=== PATIENT | female | born 1965 | race Caucasian/White ===

== ENCOUNTER 2020-09-13 17:27 | Emergency (ER) | payer OTHER, SELFPAY ==
[2020-09-13 17:38] VITALS: BP 166/107; PULSE 108; RESP 20; TEMP 37; O2SAT 98
--- NOTE | 2020-09-13 18:06 | ED.EYEPROB ---
HPI - Eye Problem General Chief complaint: Eye Problems Stated complaint: RIGHT EYE REDNESS Time Seen by Provider: 09/13/20 18:06 Source: patient Mode of arrival: ambulatory Limitations: no limitations History of Present Illness HPI Narrative: Moriah Silva is a 55 yo female who comes to [facility] for cat scratch in her right eye this morning. She currently states she is having pain in the eye and will do an eye exam to look for corneal abrasion Related Data Allergies Allergy/AdvReac Type Severity Reaction Status Date / Time clonazepam Allergy Unknown Hives Verified 06/25/20 10:05 clonidine Allergy Unknown Hives Verified 06/25/20 10:05 ibuprofen Allergy Unknown Unknown Verified 06/25/20 10:05 NSAIDS (Non-Steroidal Allergy Unknown Anaphylactic Verified 06/25/20 10:05 Anti-Inflamma Shock tramadol Allergy Unknown Hives Verified 06/25/20 10:05 TRAMADOL HCL Allergy Unknown ITCHING Uncoded 06/25/20 10:05 AND HIVES Review of Systems Review of Systems: CONSTITUTIONAL: Denies fever, chills, sweats. EYES: Denies visual changes, redness, discharge. Cat scratched R eye ENT: Denies rhinorrhea, congestion, sore throat, otalgia. CARDIOVASCULAR: Denies chest pain, palpitations, edema. RESPIRATORY: Denies dyspnea, wheezing, cough GASTROINTESTINAL: Denies abdominal pain, nausea, vomiting, diarrhea. GENITOURINARY: Denies dysuria, hematuria, abnormal discharge SKIN: Denies rash or itching. NEUROLOGIC: Denies numbness, or focal weakness. PSYCHIATRIC: Denies anxiety or depression. [facility] Past Medical History Medical History Chronic low back pain Dyslipidemia Environmental allergies Insomnia 11/08/2016 Intractable migraine without status migrainosus Right hip pain Surgical History Surgical History History of appendectomy 2004 History of repair of right rotator cuff 06/2017 and 09/2017 Hx of section (~1992) 1992 Family History Family History Father Family history of elevated blood lipids Mother Family history of coronary artery disease Family history of lupus erythematosus Other Diabetes mellitus Family history of arthritis Family history of heart disease in male family member before age 55 Family history of hypercholesterolemia Family history of malignant neoplasm Family history of malignant neoplasm of breast Family history of malignant neoplasm of esophagus Hypertension Social History Social History Smoking packs per day: 0.5 Smoking cigarettes per day: 10.0 Years smoked: 25 Smoking pack-years: 12.50 Smoking status: Former smoker Second hand tobacco smoke exposure: No Smoking end date: 02/14/15 Alcohol intake: never Substance use: never Substance use type: does not use Gender identity (if verbalized by the patient): Female Comments At time of signature, I agree with nursing past medical, surgical, social and family history. There is no relevant family history pertinent to the presenting complaint. Patient's blood pressure is elevated because of the pain and the blurriness from her eye; she states she has a regular doctors visits and normally does not have high blood pressure Exam Narrative: GENERAL: This is a well-nourished, well-developed patient, in mild distress. HEAD: normocephalic, atraumatic. EYES: PERRL. Sclera clear/white. Vision is grossly intact.R eye some blurriness EARS: External ears normal,. Hearing grossly intact. NOSE: External nose normal without nasal discharge, nares without redness, no rhinorrhea. THROAT: Mucous membranes moist, NECK: Neck supple, non-tender CARDIOVASCULAR: Regular rate and rhythm without murmurs, gallops, or rubs. RESPIRATORY: Coarse to auscultation. Breath sounds equal bilaterally. No wheezes, rales,
== END 2020-09-13 18:31 | disposition home or self-care (01) ==
PROVIDERS: Emergency Provider Nurse Practitioner; PCP Family Medicine
DX: S05.01XA Injury of conjunctiva and corneal abrasion without foreign body, right eye, initial encounter (principal); W55.03XA Scratched by cat, initial encounter; E78.5 Hyperlipidemia, unspecified; Z87.891 Personal history of nicotine dependence
CPT/HCPCS: 99213; A9270; G0463

== ENCOUNTER 2022-12-05 13:15 | Inpatient (IN) | payer OTHER, SELFPAY ==
[2022-12-05] VITALS (36 sets, daily range): BP systolic 125–208; BP diastolic 47–145; PULSE 49–172; RESP 12–31; TEMP 36–36.8; O2SAT 92–99; BMI 27.8
--- NOTE | ~2022-12-05 | XR_ITS ---
XR chest 2V 12/05/2022 13:44 Indication: Shortness of breath. Elevated heart rate. Procedure: 2 view chest Comparison: No prior studies for comparison. Findings: Cardiomegaly. Mild interstitial edema. No acute osseous abnormality. No significant effusio n. No pneumothorax. There are surgical changes of the right humeral head. Impression: 1: Cardiomegaly with mild interstitial edema.. Reviewed, dictated and finalized at location A. Impression: 1: Cardiomegaly with mild interstitial edema..
--- NOTE | 2022-12-05 13:22 | ECG_ITS ---
Measurements Intervals [place] Rate: 154 P: IA: 0 QRS: 23 QRSD: 72 T: 42 QT: 258 QTc: 414 Interpretive Statements ATRIAL FIBRILLATION WITH RAPID VENTRICULAR RESPONSE WITH ABERRANT CONDUCTION OR VENTRICULAR PREMATURE COMPLEXES POOR R-WAVE PROGRESSION NONSPECIFIC ST SEGMENT CHANGES ABNORMAL ECG NO PREVIOUS ECG AVAILABLE FOR COMPARISON Electronically Signed On 12-06-2022 7:02:10 CDT by Jacinto Guerrier M.D.
[2022-12-05 13:36] LABS: Basophils Absolute Auto 0.1 K/mm3 (0.0-0.1); Basophils Percent Auto 0.8 % (0.2-1.2); Eosinophils Absolute Auto 0.3 K/mm3 (0-0.3); Hematocrit 47.8 % (37.0-47.0); Hemoglobin 15.2 g/dL (12.0-15.0); Immature Granulocyte Absolute 0.03 K/mm3 (0.00-0.031); Immature Granulocyte Percent A 0.2 % (0-0.5); Lymphocytes Absolute Auto 4.07 K/mm3 (0.9-3.2); Lymphocytes Percent Auto 32.4 % (18.3-44.2); Mean Corpuscular HGB Conc 31.8 g/dl (32-36); Mean Platelet Volume 11.2 fl (7.4-10.4); Monocytes Absolute Auto 1.2 K/mm3 (0.1-0.6); Monocytes Percent Auto 9.6 % (2.6-8.5); Neutrophils Absolute Auto 6.9 K/mm3 (1.3-6.7); Platelet Count Result 343 k/mm3 (150-375); Red Blood Count 5.25 M/mm3 (4.2-5.4); Red Cell Distribution Width 14.6 % (11.5-14.5); White Blood Count 12.6 K/mm3 (4.5-10.0)
[2022-12-05] MEDS: dilTIAZem HCl INJ 25 MG/5 ML VIAL 15 MG IV PUSH (13:36)
[2022-12-05 13:51] LABS: Alanine Aminotransferase 37 U/L (6-35); Albumin Level 4.5 g/dL (3.5-5.1); Alkaline Phosphatase 157 U/L (38-126); Anion Gap 10 mmol/L (8-16); Aspartate Amino Transferase 31 U/L (14-36); Blood Urea Nitrogen 18 mg/dL (7-17); Calcium 10.7 mg/dL (8.4-10.2); Carbon Dioxide 22 mmol/L (22-30); Chloride 104 mmol/L (98-107); Estimated CRCL calculation 54 ml/min; Estimated Glomerular Filt Rate 52; Glucose 133 mg/dL (65-110); Potassium 4.2 mmol/L (3.4-5.0); Sodium 136 mmol/L (137-145)
[2022-12-05 14:03] LABS: NT Pro B Type Natriuretic Pept 8940 pg/mL (19.9-100); Troponin I 0.038 ng/mL (0.000-0.034)
--- NOTE | 2022-12-05 14:21 | ED.SOB ---
HPI - SOB/Dyspnea General Chief Complaint: Shortness of Breath/Dyspnea Stated Complaint: DYSPNEA Time Seen by Provider: 12/05/22 13:25 History of Present Illness HPI Narrative: Patient is a 57-year-old female who presents ER with racing heart and dyspnea. Ongoing for 5 days. Dyspnea is worse with lying down but also worse with walking. She has a cough that is nonproductive. No chest pain but does have heaviness and pressure. She can feel her heart trying to jump out of her chest. No history of arrhythmia. No heart disease. Related Data Allergies Allergy/AdvReac Type Severity Reaction Status Date / Time clonazepam Allergy Unknown Hives Verified 12/05/22 13:23 clonidine Allergy Unknown Hives Verified 12/05/22 13:23 ibuprofen Allergy Unknown Unknown Verified 12/05/22 13:23 NSAIDS (Non-Steroidal Allergy Unknown Anaphylactic Verified 12/05/22 13:23 Anti-Inflamma Shock tramadol Allergy Unknown Hives and Verified 12/05/22 15:23 itching Review of Systems Review of Systems: All systems reviewed & are unremarkable except as noted in HPI and below Constitutional: Constitutional: Denies chills, Denies fatigue and Denies fever(s) ENT: Denies nasal congestion and Denies sore throat Cardiovascular: Cardiovascular: Reports chest pain, Reports rapid heart rate and Denies radiating jaw, neck or arm pain Respiratory: Respiratory: Denies cough, Reports dyspnea and Denies wheezing Gastrointestinal: Gastrointestinal: Denies abdominal pain, Denies nausea and Denies vomiting Musculoskeletal: Musculoskeletal: Reports no additional musculoskeletal complaints PMFSH Past Medical History Medical History Chronic low back pain Dyslipidemia Environmental allergies Insomnia 11/08/2016 Intractable migraine without status migrainosus Right hip pain Surgical History Surgical History History of appendectomy 2004 History of repair of right rotator cuff 06/2017 and 09/2017 Hx of section (~1992) 1992 Family History Family History Father Family history of elevated blood lipids Mother Family history of coronary artery disease Family history of lupus erythematosus Other Diabetes mellitus Family history of arthritis Family history of heart disease in male family member before age 55 Family history of hypercholesterolemia Family history of malignant neoplasm Family history of malignant neoplasm of breast Family history of malignant neoplasm of esophagus Hypertension Social History Social History 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 Smoking packs per day: 0.5 Smoking cigarettes per day: 10.0 Years smoked: 20 Smoking pack-years: 10.00 Smoking status: Current every day smoker Tobacco type: cigarettes Second hand tobacco smoke exposure: No Smoking end date: 11/30/22 Alcohol intake: never Substance use: never Substance use type: does not use Lack of Transportation: No Lack of Food: Never True Current Housing: I Have Housing Concerned About Future Housing: No Difficulty Paying Gas/Electric Bills: No Difficulty Paying for Meds: No Currently Unemployed: No Education: High School Diploma/GED Difficulty w/ Childcare or Family Care: No Living arrangements: with family Occupation/Education: unemployed Gender identity (if verbalized by the patient): Female Sexual Orientation (if Verbalized by the Patient): Straight or Heterosexual Spiritual care concerns: No Exam Narrative: GENERAL: Anxious-appearing, well-nourished, and in no acute distress. HEAD: Normocephalic, atraumatic. ENT: Mucous membranes moist. NECK: Supple. CHEST: Need for basilar Rales. No respiratory distress. HEART: Irregular regular rate rhythm that is tachyca
[2022-12-05] MEDS: FUROSEMIDE INJ 40 MG/4 ML VIAL IV PUSH ×2 (14:45→20:00)
[2022-12-05] MEDS: dilTIAZem 100 MG/100 ML 100 MG/100 ML BAG IV CONT (14:45)
[2022-12-05] MEDS: ENOXAPARIN 80 MG/0.8 ML SYRINGE SUB-Q ×2 (14:45→22:17)
--- NOTE | 2022-12-05 15:00 | PM.IMHP ---
H&P: HPI History of Present Illness Date/Time: 12/05/22 15:00 Chief Complaint: Shortness of breath Narrative: This is a 57-year-old female patient with a history of migraines who presents to the emergency department complaining of shortness of breath ongoing for approximately the last 1 week. Patient notes that for about the last month she has felt really poor overall generalized health. She notes that about 2 weeks ago she was having significant trouble sleeping and has been resting upright in a chair rather than lying down to try to sleep. About 5-7 days ago she developed significant shortness of breath with mild activity and has since developed a persistent cough. Patient reports some heaviness in her chest slight difficulty catching her breath but no sharp or stabbing chest pain. She did note a but over the last week or so that she has had pounding rapid heart rate that has felt irregular. Patient endorses some mild nausea from time to time but no vomiting or abdominal pain. Prior to these events patient had no significant past medical history. She did smoke until 5 days ago but stated that it has always been half pack or less per day. 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 Chest x-ray shows cardiomegaly with interstitial pulmonary edema. Labs are significant for proBNP nearly 9000 with troponin just over high normal at 0.038. Estimated GFR is 52 with creatinine 1.1 and BUN of 18. Minimally elevated white blood cell count of 12.6. No signs of infection. Review of Systems Review of Systems: All systems reviewed & are unremarkable except as noted in HPI and below PMFSH Past Medical History Medical History Chronic low back pain Dyslipidemia Environmental allergies Insomnia 11/08/2016 Intractable migraine without status migrainosus Right hip pain Surgical History Surgical History History of appendectomy 2004 History of repair of right rotator cuff 06/2017 and 09/2017 Hx of section (~1992) 1992 Family History Family History Father Family history of elevated blood lipids Mother Family history of coronary artery disease Family history of lupus erythematosus Other Diabetes mellitus Family history of arthritis Family history of heart disease in male family member before age 55 Family history of hypercholesterolemia Family history of malignant neoplasm Family history of malignant neoplasm of breast Family history of malignant neoplasm of esophagus Hypertension Social History Social History 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 Smoking packs per day: 0.5 Smoking cigarettes per day: 10.0 Years smoked: 20 Smoking pack-years: 10.00 Smoking status: Current every day smoker Tobacco type: cigarettes Second hand tobacco smoke exposure: No Smoking end date: 11/30/22 Alcohol intake: never Substance use: never Substance use type: does not use Lack of Transportation: No Lack of Food: Never True Current Housing: I Have Housing Concerned About Future Housing: No Difficulty Paying Gas/Electric Bills: No Difficulty Paying for Meds: No Currently Unemployed: No Education: High School Diploma/GED Difficulty w/ Childcare or Family Care: No Living arrangements: with family Occupation/Education: unemployed Gender identity (if verbalized by the patient): Female Sexual Orientation (if Verbalized by the Patient): Straight or Heterosexual Spiritual care concerns: No Meds Home Medications and Allergies Allergies Allergy/AdvReac Type Severity Reaction Status Date / Time clonazepam Allergy Unknown Hives Verified 12/05/22 13:23 clonidine Allergy Unknown Hives Verified 12/05/22 13:23 ibuprofen Allergy Unknown Unknown Verified
[2022-12-05] MEDS: NITROGLYCERIN SL 0.4 MG TABLET SUBLINGUAL (15:30)
--- NOTE | 2022-12-05 16:16 | ADMGEN ---
This patient, Moriah Silva, was admitted to IMU Room 212-01. Patient/family oriented to hospital policies and general routines including ID bracelet, bed and alarms, visiting hours, pain management, procedures, bathroom and other care routines, personal items, smoking policy, room service/diet, and visiting hours. Information on how to activate the Rapid Response Team has been discussed. Patient/Family are encouraged to report perceived risks to care and to ask questions if they do not understand what they are told or what they should do.
[2022-12-05 16:59] LABS: Troponin I 0.038 ng/mL (0.000-0.034)
[2022-12-05 20:10] LABS: Troponin I 0.036 ng/mL (0.000-0.034)
[2022-12-05] MEDS: ACETAMINOPHEN 325 MG TABLET 650 MG PO (20:13)
[2022-12-05] MEDS: hydrOXYzine HCL 25 MG TABLET 50 MG PO (20:14)
[2022-12-05] MEDS: dilTIAZem 100 MG/100 ML 100 MG/100 ML BAG 10 MG IV CONT (21:27)
[2022-12-06] VITALS (18 sets, daily range): BP systolic 126–151; BP diastolic 74–106; PULSE 70–97; RESP 18–20; TEMP 36.1–36.8; O2SAT 91–99
--- NOTE | 2022-12-06 | ECHO_ITS ---
Patient Info Name: Moriah Silva Age: 57 years : 1965 Gender: Female Ht: 66 in Wt: 171 lbs BSA: 1.92 m2 HR: 70 bpm BP: 126 / 74 mmHg Heart Rhythm: Atrial Fibrillation Technical Quality: Fair Exam Date: 12/06/2022 9:55 AM Exam Location: [facility] Pulmonary Exam Room: 212 Patient Status: Inpatient Admit Date: 12/05/2022 Staff Ordering Physician: Александр Mehta APRN Air Intercept Controller Supervisor: Teresa Thakkar RDCS Attending Provider: Ernie Givens MD Referring Physician: Tyson ALMANZAR; Exam Type: CA echo doppler color flow Study Info Indications - NEW ONSET CONGESTIVE HEART FAILURE Complete two-dimensional, color flow and Doppler transthoracic echocardiogram is performed. Summary 1. Complete two-dimensional, color flow and Doppler transthoracic echocardiogram is performed. 2. Mild left ventricular hypertrophy with preserved systolic function. 3. Moderate left atrial enlargement. 4. Small amount of mitral and tricuspid regurgitation. 5. Mildly sclerotic aortic valve/no aortic stenosis. 6. Atrial fibrillation. Left Ventricle Left ventricular chamber dimension is normal. Left ventricular systolic function is normal, estimated at 50-55%. There is mild concentric increased left ventricular wall thickness. The left ventricular diastolic function is indeterminate. Right Ventricle Right ventricular chamber dimension is normal. Left Atria Left atrial chamber dimension is moderately enlarged. Right Atria Right atrial chamber dimension is normal. Aortic Valve The aortic valve is trileaflet. There is mild aortic valve sclerosis. Pulmonic Valve The pulmonic valve is normal. Mitral Valve The mitral valve has normal leaflets. There is mild mitral valve regurgitation. The mitral valve annulus is mildly calcified. Tricuspid Valve The tricuspid valve leaflets are normal. There is mild tricuspid valve regurgitation. Pericardium/Pleural The pericardium appears normal. Aorta The aortic root size at the sinus of Valsalva is normal. Left Ventricular Outflow Tract Name Value Normal LVOT 2D LVOT Diameter 2.0 cm LVOT Doppler LVOT Peak Gradient 5 mmHg LVOT Mean Gradient 3 mmHg LVOT VTI 19 cm LVOT VTI/AV VTI Ratio 0.9 LVOT Stroke Volume 59 ml LVOT CO 14.9 l/min LVOT CI 7.7 l/min/m2 Pulmonic Valve Name Value Normal PV Doppler PV Peak Gradient 3 mmHg Mitral Valve Name Value Normal MV Doppler MV Decel [place] 716 cm/s2 MV PHT
[2022-12-06] MEDS: HYDROcodone/acetaminophen (*CRX) 5-325 MG TABLET 1 TAB PO ×3 (00:32→18:53)
[2022-12-06 04:47] LABS: Basophils Absolute Auto 0.1 K/mm3 (0.0-0.1); Basophils Percent Auto 1.3 % (0.2-1.2); Eosinophils Absolute Auto 0.3 K/mm3 (0-0.3); Eosinophils Percent Auto 3.2 % (0-4.4); Hematocrit 49.5 % (37.0-47.0); Hemoglobin 15.8 g/dL (12.0-15.0); Immature Granulocyte Absolute 0.02 K/mm3 (0.00-0.031); Immature Granulocyte Percent A 0.2 % (0-0.5); Lymphocytes Absolute Auto 3.68 K/mm3 (0.9-3.2); Lymphocytes Percent Auto 37.9 % (18.3-44.2); Mean Corpuscular HGB Conc 31.9 g/dl (32-36); Mean Corpuscular Hemoglobin 28.7 pg (26-34); Mean Platelet Volume 10.9 fl (7.4-10.4); Monocytes Absolute Auto 1.2 K/mm3 (0.1-0.6); Neutrophils Absolute Auto 4.4 K/mm3 (1.3-6.7); Neutrophils Percent Auto 45.4 % (45.5-73.1); Platelet Count Result 321 k/mm3 (150-375); Red Cell Distribution Width 14.4 % (11.5-14.5); White Blood Count 9.7 K/mm3 (4.5-10.0)
[2022-12-06 05:18] LABS: Alanine Aminotransferase 34 U/L (6-35); Albumin Level 4.5 g/dL (3.5-5.1); Alkaline Phosphatase 172 U/L (38-126); Anion Gap 11 mmol/L (8-16); Aspartate Amino Transferase 32 U/L (14-36); Bilirubin,Total 0.9 mg/dL (0.2-1.3); Blood Urea Nitrogen 22 mg/dL (7-17); Calcium 9.8 mg/dL (8.4-10.2); Carbon Dioxide 28 mmol/L (22-30); Chloride 97 mmol/L (98-107); Estimated CRCL calculation 65 ml/min; Estimated Glomerular Filt Rate > 60; Glucose 120 mg/dL (65-110); Potassium 3.2 mmol/L (3.4-5.0); Sodium 136 mmol/L (137-145)
[2022-12-06] MEDS: dilTIAZem 100 MG/100 ML 100 MG/100 ML BAG 10 MG IV CONT (07:59)
--- NOTE | 2022-12-06 09:28 | PM.CNCAR ---
Assessment and Plan Assessment and plan (1) Atrial fibrillation with RVR: Code(s): I48.91 - Unspecified atrial fibrillation Status: Acute Assessment and Plan: New diagnosis of atrial fibrillation. By her history, it sounds like she has been in atrial fibrillation for a couple of weeks. Therefore, we will pursue a rate control strategy for now since she just was placed on anticoagulation yesterday. Her heart rate is well controlled with a diltiazem drip. We will transition her to p.o. diltiazem for now. Depending on the results of the echocardiogram, may need to shift her to a different agent for rate control if she has reduced systolic function. We discussed the idea of bringing her back for elective cardioversion as an outpatient in 4-6 weeks after she has been anticoagulated for that period of time. She understands this and is is agreeable to the plan of care. Transition to p.o. diltiazem, 60 mg q.6 hours. Discontinue diltiazem drip 30 minutes after 1st dose of p.o. diltiazem is given Shift to DOAC. Her CHADs2 Vasc score is 3 (female gender, CHF, hypertension). We will start Xarelto 20 mg daily this evening. Check TSH Echo was pending. Further recommendations to follow review of this study. (2) Hypertension: Code(s): I10 - Essential (primary) hypertension Status: Acute Assessment and Plan: Blood pressure is above goal. Will await echo results before choosing an antihypertensive agent. (3) CHF (congestive heart failure): Code(s): I50.9 - Heart failure, unspecified Status: Acute Assessment and Plan: Evidence of CHF with pulmonary edema on CXR, elevated BNP. She also has crackles on exam. Agree with IV furosemide for now. Echo is pending. (4) Elevated troponin: Code(s): R79.89 - Other specified abnormal findings of blood chemistry Status: Acute Assessment and Plan: Mildly elevated and flat. She denies any chest pain. Mild troponin spill likely secondary to AF RVR. This does not represent ACS/acute plaque rupture History of Present Illness History of Present Illness Consult date/time: 12/06/22 09:28 Requesting physician: Allen Shepard MD Consult reason: atrial fibrillation Reason For Visit: Afib, rvr, elevated trop, chf Narrative: Moriah Silva is a 57-year-old female with history of migraines. She comes to the hospital because of several weeks of generally not feeling well but over the past few days has developed rapid, pounding heart rate and shortness of breath. She is also complaining of having trouble sleeping recently and states that she has not slept in over a week. She does endorse dyspnea with exertion and orthopnea. She denies any chest pain, swelling, paroxysmal nocturnal dyspnea, syncope, or presyncope. She does not have any known cardiac history. On her initial evaluation she was found to be in atrial fibrillation with rapid ventricular response. She has been placed on a diltiazem drip and her rate is currently well controlled. She is no longer feeling palpitations or shortness of breath. Review of Systems Review of Systems: All systems reviewed & are unremarkable except as noted in HPI and below PMFSH Past Medical History Medical History Chronic low back pain Dyslipidemia Environmental allergies Insomnia 11/08/2016 Intractable migraine without status migrainosus Right hip pain Surgical History Surgical History History of appendectomy 2004 History of repair of right rotator cuff 06/2017 and 09/2017 Hx of section (~1992) 1992 Family History Family History Father Family history of elevated blood lipids Mother Family history of coronary artery disease Family history of lupus erythematosus Other Diabetes mellitus Family history o
[2022-12-06] MEDS: ONDANSETRON INJ 4 MG/2 ML VIAL IV PUSH ×2 (09:41→18:56)
[2022-12-06] MEDS: FUROSEMIDE INJ 40 MG/4 ML VIAL IV PUSH ×2 (09:41→17:54)
[2022-12-06] MEDS: ENOXAPARIN 80 MG/0.8 ML SYRINGE SUB-Q ×2 (09:42→21:24)
[2022-12-06] MEDS: POTASSIUM CHLORIDE 20 MEQ ER TABLET 40 MEQ PO (11:11)
--- NOTE | 2022-12-06 11:44 | PC.NURSE ---
Aid reported elevated BP, called Dr. Toure with no answer. Will try again.
--- NOTE | 2022-12-06 11:53 | PC.NURSE ---
1153 Dr. Toure aware of patient's vital signs. No further orders.
--- NOTE | 2022-12-06 12:01 | PM.IMPN ---
Progress Note: A&P Assessment and Plan (1) Atrial fibrillation with RVR: Code(s): I48.91 - Unspecified atrial fibrillation Status: Acute Assessment and Plan: New onset atrial fibrillation heart rate up to 170s. Diltiazem 15 mg bolus and diltiazem drip currently at 10 milligrams/hour with response of RVR down to 110s. Cardiology was consulted by the emergency department. Appreciate recommendations. IMU placement due to Cardizem drip. Rate controlled, started on Xarelto, appreciate Cardiology, (2) CHF (congestive heart failure): Code(s): I50.9 - Heart failure, unspecified Status: Acute Assessment and Plan: Apparent new onset congestive heart failure. Patient received Lasix in the emergency department. Will obtain echocardiogram tomorrow. Cardiology on board. (3) Elevated troponin: Code(s): R79.89 - Other specified abnormal findings of blood chemistry Status: Acute Assessment and Plan: Slightly elevated above high normal. Will trend. Patient has received therapeutic Lovenox in the emergency department. Cardiology on board. Switched to Xarelto, DC low (4) Hypertension: Code(s): I10 - Essential (primary) hypertension Status: Acute Assessment and Plan: Significantly elevated blood pressure with no past history of hypertension. Ordered 1 nitroglycerin while in the emergency department for CHF and hypertension. Expect Cardiology to add heart failure medications which will help with hypertension. Blood pressures reviewed 12/06 (5) Insomnia: Qualifiers: Insomnia type: unspecified Qualified Code(s): G47.00 - Insomnia, unspecified Code(s): G47.00 - Insomnia, unspecified Status: Acute Assessment and Plan: Atarax PRN and scheduled HS, reports she has not slept much if any for past 2 weeks, longstanding history of sleep disturbances, no snoring or KRISTA concerns prior to the past couple weeks. Plan DVT prophylaxis with Xarelto GI prophylaxis not indicated Code status full code Subjective Date/time seen: 12/06/22 12:01 Interval history: 57-year-old female patient with a history of migraines who presents to the emergency department complaining of shortness of breath and currently being treated for new onset AFib with RVR. No overnight events noted. No chest pain or shortness of breath. No nausea, vomiting or diarrhea. No fevers or chills. She feels much better than when she came in. Review of Systems Review of Systems: 12 point review of systems was assessed and was negative except as noted in the HPI Exam Narrative: General: No acute distress, alert and oriented per baseline HEENT: Atraumatic, normocephalic, mucous membranes moist CV: Irregularly irregular, S1, S2 Lungs: Clear to auscultation bilaterally, no rales or crackles noted, no wheezes, good air entry Abdomen: Soft, nontender, nondistended Extremities: Normal to inspection Skin: No rashes noted, no lesions or wounds seen Psych: Euthymic, normal affect Objective Data Vital Signs Vital Signs: Vital Signs - 24 hr 12/05/22 13:17 12/05/22 13:24 12/05/22 13:24 Temperature 97.6 F Pulse Rate 49 L 164 H 146 H Respiratory Rate 19 23 H Blood Pressure 155/133 H 208/145 H Pulse Oximetry 99 99 Oxygen Delivery 12/05/22 13:23 12/05/22 13:24 12/05/22 13:30 Temperature Pulse Rate 149 H 157 H 126 H Respiratory Rate 27 H 26 H 18 Blood Pressure 208/145 H Pulse Oximetry 97 Oxygen Delivery 12/05/22 13:31 12/05/22 13:45 12/05/22 13:58 Temperature Pulse Rate 172 H 104 H 111 H Respiratory Rate 18 20 24 H Blood Pressure 170/143 H 163/129 H Pulse Oximetry 99 97 92 Oxygen Delivery 12/05/22 14:00 12/05/22 14:01 12/05/22 14:15 Temperature Pulse Rate 110 H 99 116 H Respiratory Rate 26 H 22 H 28 H Blood Pressure 174/132 H 187/134 H Pulse Oximetry 97 96 97 Oxygen Delivery
[2022-12-06] MEDS: dilTIAZem HCL 60 MG TABLET PO ×2 (12:27→17:54)
[2022-12-06] MEDS: hydrOXYzine HCL 25 MG TABLET 50 MG PO (21:24)
[2022-12-07] VITALS (21 sets, daily range): BP systolic 135–162; BP diastolic 70–102; PULSE 77–119; RESP 18–20; TEMP 35.7–36.5; O2SAT 92–97
[2022-12-07] MEDS: dilTIAZem HCL 60 MG TABLET PO ×2 (00:23→05:26)
[2022-12-07 05:11] LABS: Basophils Absolute Auto 0.1 K/mm3 (0.0-0.1); Eosinophils Absolute Auto 0.3 K/mm3 (0-0.3); Eosinophils Percent Auto 3.4 % (0-4.4); Hematocrit 55.1 % (37.0-47.0); Hemoglobin 17.2 g/dL (12.0-15.0); Immature Granulocyte Absolute 0.03 K/mm3 (0.00-0.031); Immature Granulocyte Percent A 0.3 % (0-0.5); Lymphocytes Absolute Auto 2.96 K/mm3 (0.9-3.2); Lymphocytes Percent Auto 31.3 % (18.3-44.2); Mean Corpuscular HGB Conc 31.2 g/dl (32-36); Mean Corpuscular Hemoglobin 28.5 pg (26-34); Mean Corpuscular Volume 91.2 fl (80-100); Mean Platelet Volume 10.8 fl (7.4-10.4); Monocytes Absolute Auto 0.9 K/mm3 (0.1-0.6); Monocytes Percent Auto 9.9 % (2.6-8.5); Neutrophils Absolute Auto 5.1 K/mm3 (1.3-6.7); Neutrophils Percent Auto 54.1 % (45.5-73.1); Platelet Count Result 370 k/mm3 (150-375); Red Blood Count 6.04 M/mm3 (4.2-5.4); Red Cell Distribution Width 15.1 % (11.5-14.5); White Blood Count 9.5 K/mm3 (4.5-10.0)
[2022-12-07 06:11] LABS: Alanine Aminotransferase 30 U/L (6-35); Albumin Level 4.7 g/dL (3.5-5.1); Alkaline Phosphatase 163 U/L (38-126); Anion Gap 10 mmol/L (8-16); Aspartate Amino Transferase 30 U/L (14-36); Bilirubin,Total 0.8 mg/dL (0.2-1.3); Blood Urea Nitrogen 24 mg/dL (7-17); Calcium 10.3 mg/dL (8.4-10.2); Carbon Dioxide 28 mmol/L (22-30); Chloride 97 mmol/L (98-107); Estimated CRCL calculation 65 ml/min; Estimated Glomerular Filt Rate > 60; Glucose 110 mg/dL (65-110); Potassium 4.5 mmol/L (3.4-5.0); Sodium 135 mmol/L (137-145)
[2022-12-07] MEDS: FUROSEMIDE INJ 40 MG/4 ML VIAL IV PUSH (08:27)
[2022-12-07] MEDS: ENOXAPARIN 80 MG/0.8 ML SYRINGE SUB-Q (08:28)
--- NOTE | 2022-12-07 09:54 | PM.PNCARD ---
Progress Note: A&P Assessment and Plan (1) Atrial fibrillation with RVR: Code(s): I48.91 - Unspecified atrial fibrillation Status: Acute Assessment and Plan: New diagnosis of atrial fibrillation. By her history, it sounds like she has been in atrial fibrillation for a couple of weeks. Therefore, we will pursue a rate control strategy for now since she just was placed on anticoagulation yesterday. Continue rate control with Diltiazem. We discussed the idea of bringing her back for elective cardioversion as an outpatient in 4-6 weeks after she has been anticoagulated for that period of time. She understands this and is is agreeable to the plan of care. Has remained rate controlled on p.o. diltiazem. Some tachycardia this morning with activity. Asymptomatic. Will shift her to long acting Cardizem 240mg daily. Give first dose now. Shift to DOAC. Her CHADs2 Vasc score is 3 (female gender, CHF, hypertension). D/c lovenox, shift to Eliquis (since I am leaving her on diltiazem, choice of Eliquis becasue of Xarelto and Dilt interaction). TSH normal Echo showed some LV hypertrophy, normal LVSF, moderate LAE If HR remains stable this morning, would be OK for discharge later this afternoon. (2) Hypertension: Code(s): I10 - Essential (primary) hypertension Status: Acute Assessment and Plan: Blood pressure is above goal. Will start her on lisinopril 5mg daily. (3) CHF (congestive heart failure): Code(s): I50.9 - Heart failure, unspecified Status: Acute Assessment and Plan: Evidence of CHF with pulmonary edema on CXR, elevated BNP. Echo showed normal LVSF. Perhaps mild CHF because of AF RVR. Pulmonary exam has improved today. Will d/c furosemide. (4) Elevated troponin: Code(s): R79.89 - Other specified abnormal findings of blood chemistry Status: Acute Assessment and Plan: Mildly elevated and flat. She denies any chest pain. Mild troponin spill likely secondary to AF RVR. This does not represent ACS/acute plaque rupture. No further workup recommended. Subjective Date/time seen: 12/07/22 09:54 Interval history: Cardiology follow up for atrial fibrillation Date of service 12/07/2022: Feeling much better this morning. Still complaining of cough but cough is now less frequent. She has felt occasional fluttering in her chest this morning but generally asymptomatic. No chest pain or shortness of breath. Review of Systems Review of Systems: All systems reviewed & are unremarkable except as noted in HPI and below Exam Const: General: comfortable, no acute distress, alert and awake Orientation/consciousness: patient oriented x3 HENMT: Head: normal to inspection Eyes: General: appearance normal, both eyes and all related structures Pupils: Equal, round and reactive pupils present Neck: Neck: normal visual inspection, supple and no JVD Carotids: normal carotid upstroke Resp: Effort & Inspection: normal respiratory effort Auscultation: clear to auscultation bilaterally Cardio: Rate: regular rate and tachycardic Rhythm: abnormal rhythm irregularly irregular Heart sounds: S1 normal heart sound present, S2 normal heart sound present and no murmurs GI: Auscultation: normal bowel sounds Skin: General skin exam: normal color Neuro: General: patient oriented x3 Cranial nerves: Yes Equal, round and reactive pupils present Extrem: General: normal to inspection Other: No edema Psych: Appearance: grossly normal Mental Status: mental status grossly normal Affect: normal affect Objective Data Vital Signs Vital Signs: Vital Signs - 24 hr 12/06/22 11:31 12/06/22 13:16 12/06/22 15:11 Temperature 36.3 C L 36.8 C Pulse Rate 78 97 80 Respiratory Rate 18 18 Blood Pressure 138/101 H 151/106 H Pulse Oximetry 91 92 Oxygen Delivery 12/06/22 10:00 12/06/22 12:00 12/06/22 14:00 Temperature Pulse Rate 85 85 86
--- NOTE | 2022-12-07 10:06 | PM.IMPN ---
Progress Note: A&P Assessment and Plan (1) Atrial fibrillation with RVR: Code(s): I48.91 - Unspecified atrial fibrillation Status: Acute Assessment and Plan: New onset atrial fibrillation heart rate up to 170s. Diltiazem 15 mg bolus and diltiazem drip currently at 10 milligrams/hour with response of RVR down to 110s. Cardiology was consulted by the emergency department. Appreciate recommendations. IMU placement due to Cardizem drip. Rate controlled, started on Eliquis, appreciate Cardiology TSH within normal limits Echo showed an EF of 50-55% without any other significant abnormalities Anticipate discharge home when okay with Cardiology, likely tomorrow (2) CHF (congestive heart failure): Code(s): I50.9 - Heart failure, unspecified Status: Acute Assessment and Plan: New onset heart failure symptoms, likely secondary to the atrial fibrillation, cardiology managing Lasix Echo showed an EF of 50-55% with no other significant abnormalities noted (3) Elevated troponin: Code(s): R79.89 - Other specified abnormal findings of blood chemistry Status: Acute Assessment and Plan: Slightly elevated above high normal. Will trend. Patient has received therapeutic Lovenox in the emergency department. Cardiology on board. Switched to Eliquis (4) Hypertension: Code(s): I10 - Essential (primary) hypertension Status: Acute Assessment and Plan: Significantly elevated blood pressure with no past history of hypertension. Ordered 1 nitroglycerin while in the emergency department for CHF and hypertension. Expect Cardiology to add heart failure medications which will help with hypertension. Blood pressures reviewed 12/07 (5) Insomnia: Qualifiers: Insomnia type: unspecified Qualified Code(s): G47.00 - Insomnia, unspecified Code(s): G47.00 - Insomnia, unspecified Status: Acute Assessment and Plan: Atarax PRN and scheduled HS, reports she has not slept much if any for past 2 weeks, longstanding history of sleep disturbances, no snoring or KRISTA concerns prior to the past couple weeks. Plan DVT prophylaxis with Eliquis GI prophylaxis not indicated Code status full code Subjective Date/time seen: 12/07/22 10:06 Interval history: 57-year-old female patient with a history of migraines who presents to the emergency department complaining of shortness of breath and currently being treated for new onset AFib with RVR. No overnight events noted. No chest pain or shortness of breath. No nausea, vomiting or diarrhea. No fevers or chills. Still with a cough and occasional palpitations. Review of Systems Review of Systems: 12 point review of systems was assessed and was negative except as noted in the HPI Exam Narrative: General: No acute distress, alert and oriented per baseline HEENT: Atraumatic, normocephalic, mucous membranes moist CV: Irregularly irregular, S1, S2 Lungs: Clear to auscultation bilaterally, no rales or crackles noted, no wheezes, good air entry Abdomen: Soft, nontender, nondistended Extremities: Normal to inspection Skin: No rashes noted, no lesions or wounds seen Psych: Euthymic, normal affect Objective Data Vital Signs Vital Signs: Vital Signs - 24 hr 12/06/22 11:31 12/06/22 13:16 12/06/22 15:11 Temperature 97.4 F L 98.2 F Pulse Rate 78 97 80 Respiratory Rate 18 18 Blood Pressure 138/101 H 151/106 H Pulse Oximetry 91 92 Oxygen Delivery 12/06/22 12:00 12/06/22 14:00 12/06/22 16:00 Temperature Pulse Rate 85 86 93 Respiratory Rate Blood Pressure Pulse Oximetry Oxygen Delivery 12/06/22 18:00 12/06/22 20:00 12/06/22 23:54 Temperature 97.0 F L 97.3 F L Pulse Rate 88 91 94 Respiratory Rate 18 18 Blood Pressure 145/99 H 148/104 H Pulse Oximetry 95 94 Oxygen Delivery 12/06/22 20:00 12/06/22 20:00 12/06/22 22:00 Temp
[2022-12-07] MEDS: dilTIAZem HCL CD 240 MG CAP.24HR PO (10:35)
[2022-12-07] MEDS: lisinopriL 5 MG TABLET PO (10:35)
[2022-12-07] MEDS: dilTIAZem HCL 30 MG TABLET PO ×2 (14:25→20:21)
[2022-12-07] MEDS: HYDROcodone/acetaminophen (*CRX) 5-325 MG TABLET 1 TAB PO ×2 (14:27→20:22)
[2022-12-07] MEDS: BENZONATATE 100 MG CAPSULE 200 MG PO (17:00)
[2022-12-07] MEDS: APIXABAN 5 MG TABLET PO (20:22)
[2022-12-07] MEDS: hydrOXYzine HCL 25 MG TABLET 50 MG PO (20:22)
[2022-12-07] MEDS: ONDANSETRON INJ 4 MG/2 ML VIAL IV PUSH (20:28)
[2022-12-08] VITALS (9 sets, daily range): BP systolic 140–162; BP diastolic 86–104; PULSE 66–114; RESP 18–20; TEMP 35.9–36.4; O2SAT 94–97
[2022-12-08] MEDS: dilTIAZem HCL 30 MG TABLET PO (02:49)
[2022-12-08 05:25] LABS: Basophils Absolute Auto 0.1 K/mm3 (0.0-0.1); Basophils Percent Auto 1.5 % (0.2-1.2); Eosinophils Absolute Auto 0.3 K/mm3 (0-0.3); Eosinophils Percent Auto 3.4 % (0-4.4); Hematocrit 53.4 % (37.0-47.0); Hemoglobin 16.7 g/dL (12.0-15.0); Immature Granulocyte Absolute 0.02 K/mm3 (0.00-0.031); Immature Granulocyte Percent A 0.3 % (0-0.5); Lymphocytes Absolute Auto 2.05 K/mm3 (0.9-3.2); Lymphocytes Percent Auto 28.2 % (18.3-44.2); Mean Corpuscular HGB Conc 31.3 g/dl (32-36); Mean Corpuscular Hemoglobin 28.9 pg (26-34); Mean Corpuscular Volume 92.4 fl (80-100); Mean Platelet Volume 10.4 fl (7.4-10.4); Monocytes Absolute Auto 1.3 K/mm3 (0.1-0.6); Neutrophils Absolute Auto 3.5 K/mm3 (1.3-6.7); Neutrophils Percent Auto 48.6 % (45.5-73.1); Platelet Count Result 348 k/mm3 (150-375); Red Blood Count 5.78 M/mm3 (4.2-5.4); Red Cell Distribution Width 14.4 % (11.5-14.5); White Blood Count 7.3 K/mm3 (4.5-10.0)
[2022-12-08 05:40] LABS: Alanine Aminotransferase 26 U/L (6-35); Albumin Level 4.3 g/dL (3.5-5.1); Alkaline Phosphatase 134 U/L (38-126); Anion Gap 5 mmol/L (8-16); Aspartate Amino Transferase 32 U/L (14-36); Bilirubin,Total 0.6 mg/dL (0.2-1.3); Blood Urea Nitrogen 25 mg/dL (7-17); Calcium 9.2 mg/dL (8.4-10.2); Carbon Dioxide 28 mmol/L (22-30); Chloride 99 mmol/L (98-107); Estimated CRCL calculation 53 ml/min; Estimated Glomerular Filt Rate 58; Glucose 104 mg/dL (65-110); Potassium 4.6 mmol/L (3.4-5.0); Sodium 132 mmol/L (137-145)
[2022-12-08] MEDS: APIXABAN 5 MG TABLET PO (09:06)
[2022-12-08] MEDS: dilTIAZem HCL CD 180 MG CAP.24HR 360 MG PO (09:06)
[2022-12-08] MEDS: BENZONATATE 100 MG CAPSULE 200 MG PO ×2 (09:06→12:35)
[2022-12-08] MEDS: lisinopriL 5 MG TABLET PO (09:06)
[2022-12-08] MEDS: HYDROcodone/acetaminophen (*CRX) 5-325 MG TABLET 1 TAB PO (09:08)
[2022-12-08] MEDS: ONDANSETRON INJ 4 MG/2 ML VIAL IV PUSH (09:08)
--- NOTE | 2022-12-08 13:58 | PCCCNOTE ---
On 12/08/22, the student, [Brandy Bradshaw], provided care and completed [facility] documentation on this patient. I have reviewed the student's documentation and agree with the findings.
--- NOTE | 2022-12-08 15:13 | PM.DS ---
DS: Admitting Diagnosis Discharge Date 12/08/22 Admitting Diagnosis Shortness of breath DS: Discharge Diagnosis Discharge Diagnosis (1) Atrial fibrillation with RVR: Code(s): I48.91 - Unspecified atrial fibrillation Status: Acute (2) CHF (congestive heart failure): Code(s): I50.9 - Heart failure, unspecified Status: Acute (3) Elevated troponin: Code(s): R79.89 - Other specified abnormal findings of blood chemistry Status: Acute (4) Hypertension: Code(s): I10 - Essential (primary) hypertension Status: Acute (5) Insomnia: Qualifiers: Insomnia type: unspecified Qualified Code(s): G47.00 - Insomnia, unspecified Code(s): G47.00 - Insomnia, unspecified Status: Acute (6) Tobacco abuse: Code(s): Z72.0 - Tobacco use Status: Acute DS: Summary Hospital Course Reason for hospitalization: 57-year-old female with migraines who presents to the emergency department complaining of shortness of breath and found to have new onset AFib with RVR. Please see H&P for details. Hospital Course: Patient has been having symptoms for the past 1-2 weeks with SOB, malaise, insomnia possibly orthopnea, and cough. She quit smoking about 2 weeks. ago. She was congratulated on quitting and was educated about the benefits of smoking cessation. Her EKG showing AFib/RVR (154) with PVC and poor R wave progression and nonspecific ST segment changes. This is new onset atrial fibrillation.?CXR showing CMG with mild interstitial edema. Lasix given. Diltiazem bolus and drip started.? Cardiology was consulted and appreciate their recommendations.?Rate better controlled. CHADs2 Vasc score is 3 (female gender, CHF, HTN). She was started on Eliquis. Hgb elevated 15-17 range;undiagnosed KRISTA or related to smoking? TSH normal. Troponin elevated to 0.038 but flat. Echo showed an EF of 50-55% without any other significant abnormalities. She was transitioned to oral Diltiazem. Heart rate remained reasonable. She denies SOB or CP. Slept well. She has been up walking to the bathroom without lightheadedness, MCKEON or palpitations. She overall did well and was able to be discharged home on 12/08/22. Status at Discharge Cognitive/behavioral status at discharge: stable Time Spent with Patient Time attestation: Total time spent providing and/or coordinating discharge services: 35 minutes Time spent: Greater than 30 minutes Exam Narrative: AF 97.0 141/86 100 18 94% ra General: NARD CV: Irregularly irregular, S1, S2. Tele showing occasional episodes of tachycardia Lungs: few basilar rhonchi o/w clear Abdomen: Soft, nontender, nondistended Extremities: No edema Skin: No rashes noted, no lesions or wounds seen Psych: Euthymic, normal affect DS: Data Data Completed and Pending Labs on day of discharge: Labs from last 24 hours 12/08/22 05:00 WBC 7.3 RBC 5.78 H Hgb 16.7 H Hct 53.4 H MCV 92.4 MCH 28.9 MCHC 31.3 L RDW 14.4 Plt Count 348 MPV 10.4 Immature Gran % (Auto) 0.3 Neut % (Auto) 48.6 Lymph % (Auto) 28.2 Mills % (Auto) 18.0 H Eos % (Auto) 3.4 Baso % (Auto) 1.5 H Lymph # (Auto) 2.05 Mills # (Auto) 1.3 H Eos # (Auto) 0.3 Baso # (Auto) 0.1 Abs Immat Gran (auto) 0.02 Absolute Neuts (auto) 3.5 Absolute Nucleated RBC 0.0 Nucleated RBC % 0.0 Sodium 132 L Potassium 4.6 Chloride 99 Carbon Dioxide 28 Anion Gap 5 L BUN 25 H Creatinine 1.00 Estim Creat Clear Calc 53 Estimated GFR 58 L Glucose 104 Calcium 9.2 Total Bilirubin 0.6 AST 32 ALT 26 Alkaline Phosphatase 134 H Total Protein 8.0 Albumin 4.3 Discharge Plan Discharge Attending physician on discharge: Abdoul Childress Consulting providers: Jacinto Guerrier Discharging Clinician: Abdoul Childress Anticipated Discharge Date/Time: 12/08/22 15:26 Patient Disposition: Home, Self-Care Activity: as tolerated Diet: heart
== END 2022-12-08 16:50 | disposition home or self-care (01) | DRG 310 ==
LOC: ANHED 14:57 → ANHIMU 15:43
PROVIDERS: Nurse Practitioner; Admitting Provider Chiropractor; Emergency Provider Emergency Medicine; PCP Family Medicine; Visit Provider Internal Medicine
DX: I48.91 Unspecified atrial fibrillation (principal); I11.0 Hypertensive heart disease with heart failure; I50.9 Heart failure, unspecified; E78.5 Hyperlipidemia, unspecified; M54.59 Other low back pain; G89.29 Other chronic pain; G47.00 Insomnia, unspecified; G43.909 Migraine, unspecified, not intractable, without status migrainosus; F17.210 Nicotine dependence, cigarettes, uncomplicated
CPT/HCPCS: 36415; 71046; 80053; 83880; 84443; 84484; 85025; 93005; 93306; 96366; 96372; 96374; 96375; 99285; A9270; G0378; J1650; J1940; J2405

== ENCOUNTER 2023-01-17 00:27 | Day surgery (SDC) | payer OTHER, SELFPAY ==
[2023-01-14 13:30] VITALS: BMI 28.0
[2023-01-17] VITALS (11 sets, daily range): BP systolic 106–133; BP diastolic 73–89; PULSE 76–109; RESP 16–26; TEMP 36.6; O2SAT 94–100; BMI 25.7
--- NOTE | 2023-01-17 08:30 | ECG_ITS ---
Measurements Intervals [place] Rate: 90 P: 44 [place]: 181 QRS: -7 QRSD: 79 T: 32 QT: 371 QTc: 455 Interpretive Statements SINUS RHYTHM WITH OCCASIONAL SUPRAVENTRICULAR PREMATURE COMPLEXES NONSPECIFIC ST & T-WAVE ABNORMALITY ABNORMAL ECG COMPARED TO ECG 01/17/2023 08:54:06 SINUS RHYTHM REPLACES ATRIAL FIBRILLATION Electronically Signed On 01-17-2023 15:17:03 PASSENGER BOOKING CLERK by Jacinto Guerrier M.D.
[2023-01-17 09:22] LABS: Anion Gap 13 mmol/L (8-16); Blood Urea Nitrogen 18 mg/dL (7-17); Calcium 9.9 mg/dL (8.4-10.2); Carbon Dioxide 18 mmol/L (22-30); Chloride 106 mmol/L (98-107); Estimated CRCL calculation 65 ml/min; Estimated Glomerular Filt Rate > 60; Glucose 113 mg/dL (65-110); Magnesium 2.1 mg/dL (1.6-2.3); Potassium 4.2 mmol/L (3.4-5.0); Sodium 137 mmol/L (137-145)
--- NOTE | 2023-01-17 10:10 | WPDMODSED ---
Moderate Sedation Note-Pt Data Patient Data Diagnosis: Persistent atrial fibrillation Present Complaint: Generalized fatigue Procedure to be performed/Plan: DC cardioversion Allergies Allergy/AdvReac Type Severity Reaction Status Date / Time clonazepam Allergy Unknown Hives Verified 01/17/23 08:30 ibuprofen Allergy Unknown Unknown Verified 01/17/23 08:30 NSAIDS (Non-Steroidal Allergy Unknown Anaphylactic Verified 01/17/23 08:30 Anti-Inflamma Shock tramadol Allergy Unknown Hives and Verified 01/17/23 08:30 itching Home Medications Medication Instructions Recorded Confirmed Type apixaban 5 mg tablet (Eliquis) 5 mg PO Q12HR #60 tabs 12/08/22 01/14/23 Rx diltiazem HCl 180 mg 360 mg PO QAM #30 caps 12/08/22 01/14/23 Rx capsule,extended release 24 hr, controlled lisinopril 5 mg tablet 5 mg PO QAM #30 tabs 12/08/22 01/14/23 Rx zolpidem 10 mg tablet 10 mg PO QHS #90 tabs 12/17/22 01/14/23 Rx Current Medications: Active Medications Apixaban (Apixaban 5 Mg Tablet) 5 mg PO Q12HR CHYNA Sodium Chloride (Normal Saline Iv) 1,000 mls @ 30 mls/hr IV CONT .Q24H CHYNA Lisinopril (Lisinopril 5 Mg Tablet) 5 mg PO QAM CHYNA Metoprolol Succinate (Metoprolol Succinate Ext Rel 50 Mg Tabcr) 50 mg PO QAM CHYNA Zolpidem Tartrate (Zolpidem Tartrate (*Crx) 5 Mg Tablet) 10 mg PO QHS CHYNA Sedation/Anesthesia: No previous sedation/anesthesia problems (including family history). [facility] Past Medical History Medical History Chronic low back pain Dyslipidemia Environmental allergies Insomnia 11/08/2016 Intractable migraine without status migrainosus Right hip pain Surgical History Surgical History History of appendectomy 2005 History of repair of right rotator cuff 06/2017 and 09/2017 Hx of section (~1992) 1992 Family History Family History Father Family history of elevated blood lipids Mother Family history of coronary artery disease Family history of lupus erythematosus Other Diabetes mellitus Family history of arthritis Family history of heart disease in male family member before age 55 Family history of hypercholesterolemia Family history of malignant neoplasm Family history of malignant neoplasm of breast Family history of malignant neoplasm of esophagus Hypertension Social History Social History (Updated 12/15/22 @ 13:07 by Lisa Hernandez) 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 Smoking packs per day: 0.5 Smoking cigarettes per day: 10.0 Years smoked: 20 Smoking pack-years: 10.00 Smoking status: Former smoker Tobacco type: cigarettes Second hand tobacco smoke exposure: No Smoking end date: 11/30/22 Alcohol intake: never Substance use: never Substance use type: does not use Lack of Transportation: No Lack of Food: Never True Current Housing: I Have Housing Concerned About Future Housing: No Difficulty Paying Gas/Electric Bills: No Difficulty Paying for Meds: No Currently Unemployed: No Education: High School Diploma/GED Difficulty w/ Childcare or Family Care: No Living arrangements: with family Occupation/Education: unemployed Gender identity (if verbalized by the patient): Female Sexual Orientation (if Verbalized by the Patient): Straight or Heterosexual Spiritual care concerns: No Mod Sed Physical Exam Physical Exam Pre Procedural Exam: Normal: Appearance, Neck, Throat, Airway, Lungs, Heart Size, Neuro Exam and Extremities and Variation: Heart Rate and Heart Rhythm (Irregularly irregular) Hours since solid foods: 12 Hours since liquid intake: 12 Mallampati Classification: class II Internal Medicine - PN: Obj Da Vital Signs Vital Signs: Vital Signs - 24 hr 01/17/23 08:56 Temperature 36.6 C Pulse Rate 107 H Respiratory Rate 16 Blood Pressure 133
--- NOTE | 2023-01-17 10:11 | WPDCARDPROC ---
Cardiac Cath Procedure Note Date of procedure:: 01/17/23 Performing physician:: Jacinto Guerrier MD Indication:: Persistent atrial fibrillation Brief clinical history:: This is a 57-year-old woman who presented to the hospital in November with atrial fibrillation of unclear chronicity. Was felt that she was in AF for at least 2-3 weeks. Rate control and anticoagulation has been provided with diltiazem and apixaban. An attempt at restoring sinus rhythm electrically has been recommended for today. Echocardiogram on initial presentation was unremarkable other than for her arrhythmia Procedure Procedure performed:: DC cardiovert Sedation/Medication given:: Intravenous propofol 110 mg Estimated blood loss:: None Procedure note:: Patient was in the labor relations specialist holding area in the postabsorptive state defibrillator patches were placed in the AP position and the defibrillator was turned on at 200 joules in synchronized mode. The patient was then sedated with propofol as detailed above. She was counter shocked 1 time at 200 joules which restored normal sinus rhythm. Findings:: As above Conclusion:: Successful uncomplicated DC cardioversion terminating atrial fib, restoring sinus rhythm using 200 joules x1 shock Jacinto Guerrier MD FACC Assessment and Plan Assessment and plan (1) Atrial fibrillation with RVR: Code(s): I48.91 - Unspecified atrial fibrillation Status: Acute
--- NOTE | 2023-01-17 10:30 | ECG_ITS ---
Measurements Intervals [place] Rate: 107 P: [place]: 0 QRS: 5 QRSD: 73 T: 16 QT: 332 QTc: 445 Interpretive Statements ATRIAL FIBRILLATION WITH RAPID VENTRICULAR RESPONSE WITH ABERRANT CONDUCTION OR VENTRICULAR PREMATURE COMPLEXES NONSPECIFIC ST AND T-WAVE ABNORMALITY ABNORMAL ECG COMPARED TO ECG 12/05/2022 13:24:54 NO SIGNIFICANT CHANGES Electronically Signed On 01-17-2023 15:13:03 WEB SERVICES DEVELOPER by Jacinto Guerrier M.D.
[2023-01-17] MEDS: METOPROLOL SUCCINATE EXT REL 50 MG TABCR PO (10:43)
== END 2023-01-17 11:25 | disposition home or self-care (01) ==
PROVIDERS: PCP Family Medicine; Visit Provider Specialist
PROC: 5A2204Z Restoration of Cardiac Rhythm, Single (ICD-10-PCS; principal; 2023-01-17 10:00)
DX: I48.91 Unspecified atrial fibrillation (principal); I10 Essential (primary) hypertension
CPT/HCPCS: 36415; 80048; 83735; 92960; A9270; J2704; J7030

== ENCOUNTER 2023-01-24 09:53 | Observation (INO) | payer OTHER, SELFPAY ==
[2023-01-24] VITALS (16 sets, daily range): BP systolic 106–162; BP diastolic 69–111; PULSE 72–128; RESP 14–28; TEMP 36.1–37.1; O2SAT 96–100; BMI 27.5
--- NOTE | ~2023-01-24 | XR_ITS ---
EXAMINATION: XR chest 1V portable INDICATION: Irregular heart rate TECHNIQUE: Portable AP chest at 1005 hours COMPARISON: 12/05/2022 FINDINGS: The lungs are free of acute opacities. No pleural effusion or pneumothorax. The cardiomedia stinal silhouette is normal. Suture anchors are noted in the right humeral head. IMPRESSION: 1. No acute cardiopulmonary abnormality. Reviewed, dictated and finalized at location B. UM BLOCK SETTER
--- NOTE | 2023-01-24 09:56 | ECG_ITS ---
Measurements Intervals [place] Rate: 117 P: [place]: 0 QRS: -3 QRSD: 83 T: 62 QT: 337 QTc: 472 Interpretive Statements ATRIAL FIBRILLATION WITH RAPID VENTRICULAR RESPONSE MODERATE ST DEPRESSION [0.05+ mV ST DEPRESSION] ABNORMAL ECG COMPARED TO ECG 01/17/2023 10:11:02 ATRIAL FIBRILLATION NOW PRESENT ST (T WAVE) DEVIATION NOW PRESENT Electronically Signed On 01-24-2023 12:48:48 MEDICAL PHOTOGRAPHER by Ran Gordillo M.D.
--- NOTE | 2023-01-24 10:01 | PC.NURSE ---
pt verbalized taking daily Aspirin when asked to verify allergies
--- NOTE | 2023-01-24 10:03 | ED.ARRPALP ---
HPI - Arrhythmia/Palpitations General Chief Complaint: Arrhythmia/Palpitations <Juliette Phoenix PA-C - Last Filed: 01/24/23 12:51> Stated Complaint: afib with rvr <Juliette Phoenix PA-C - Last Filed: 01/24/23 12:51> Time Seen by Provider: 01/24/23 10:00 <Juliette Phoenix PA-C - Last Filed: 01/24/23 12:51> Source: patient <CRISELDA Marc Last Filed: 01/24/23 12:51> Mode of arrival: ambulatory <CRISELDA Marc Last Filed: 01/24/23 12:51> Limitations: no limitations <CRISELDA Marc Last Filed: 01/24/23 12:51> History of Present Illness HPI narrative: This is a 58 year old female that presents to the ER for atrial fibrillation with RVR. Reports she was recently diagnosed with atrial fibrillation. Hospitalized and started on Diltiazem. She was transitioned to Metoprolol upon discharge. She went last week for follow up and had a cardioversion. She continued to be in atrial fibrillation and was switched to Sotalol at the end of last week. She went in for her follow-up EKG today and was noted to again be in atrial fibrillation with rapid ventricular response. Was sent to the ER for further management. She does report some shortness of breath. Denies fever, cough, chest pain, or lower extremity edema. <Juliette Phoenix PA-C - Last Filed: 01/24/23 12:51> Related Data Home Medications: Home Medications Medication Instructions Recorded Confirmed sotalol 80 mg tablet 80 mg PO BID 01/24/23 01/24/23 <CRISELDA Marc Last Filed: 01/24/23 12:51> Allergies/Adverse Reactions: Allergies Allergy/AdvReac Type Severity Reaction Status Date / Time clonazepam Allergy Unknown Hives Verified 01/24/23 10:06 ibuprofen Allergy Unknown Unknown Verified 01/24/23 10:06 NSAIDS (Non-Steroidal Allergy Unknown Anaphylactic Verified 01/24/23 10:06 Anti-Inflamma Shock tramadol Allergy Unknown Hives and Verified 01/24/23 10:06 itching <Juliette Phoenix PA-C - Last Filed: 01/24/23 12:51> Review of Systems Review of Systems: CONSTITUTIONAL: Denies fever CARDIOVASCULAR: Reports palpitations. Denies chest pain, or edema. RESPIRATORY: Denies cough or dyspnea. <Juliette Phoenix PA-C - Last Filed: 01/24/23 12:51> All systems reviewed & are unremarkable except as noted in HPI and below <Juliette Phoenix PA-C - Last Filed: 01/24/23 12:51> PMFSH Past Medical History Medical History: Medical History Chronic low back pain Dyslipidemia Environmental allergies Insomnia 11/08/2016 Intractable migraine without status migrainosus Right hip pain <Juliette Phoenix PA-C - Last Filed: 01/24/23 12:51> Surgical History Surgical History: Surgical History History of appendectomy 2005 History of repair of right rotator cuff 06/2017 and 09/2017 Hx of section (~1992) 1992 <Juliette Phoenix PA-C - Last Filed: 01/24/23 12:51> Family History Family History: Family History Father Family history of elevated blood lipids Hypertension Mother Family history of arthritis Family history of coronary artery disease Family history of lupus erythematosus Hypertension <Juliette Phoenix PA-C - Last Filed: 01/24/23 12:51> Social History Social History: Social History (Updated 12/15/22 @ 13:07 by Lisa Hernandez) 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
[2023-01-24 10:28] LABS: Basophils Absolute Auto 0.1 K/mm3 (0.0-0.1); Basophils Percent Auto 0.9 % (0.2-1.2); Eosinophils Absolute Auto 0.2 K/mm3 (0-0.3); Eosinophils Percent Auto 1.7 % (0-4.4); Hematocrit 52.5 % (37.0-47.0); Hemoglobin 17.1 g/dL (12.0-15.0); Immature Granulocyte Absolute 0.05 K/mm3 (0.00-0.031); Immature Granulocyte Percent A 0.5 % (0-0.5); Lymphocytes Absolute Auto 5.23 K/mm3 (0.9-3.2); Lymphocytes Percent Auto 48.9 % (18.3-44.2); Mean Corpuscular HGB Conc 32.6 g/dl (32-36); Mean Corpuscular Hemoglobin 28.3 pg (26-34); Mean Corpuscular Volume 86.8 fl (80-100); Mean Platelet Volume 10.3 fl (7.4-10.4); Monocytes Percent Auto 9.1 % (2.6-8.5); Neutrophils Absolute Auto 4.2 K/mm3 (1.3-6.7); Neutrophils Percent Auto 38.9 % (45.5-73.1); Platelet Count Result 410 k/mm3 (150-375); Red Blood Count 6.05 M/mm3 (4.2-5.4); Red Cell Distribution Width 14.7 % (11.5-14.5); White Blood Count 10.7 K/mm3 (4.5-10.0)
[2023-01-24] MEDS: dilTIAZem HCl INJ 25 MG/5 ML VIAL 10 MG IV PUSH (10:28)
[2023-01-24 10:34] LABS: Alanine Aminotransferase 23 U/L (6-35); Albumin Level 4.6 g/dL (3.5-5.1); Alkaline Phosphatase 151 U/L (38-126); Anion Gap 10 mmol/L (8-16); Aspartate Amino Transferase 24 U/L (14-36); Bilirubin,Total 0.5 mg/dL (0.2-1.3); Blood Urea Nitrogen 26 mg/dL (7-17); Calcium 10.1 mg/dL (8.4-10.2); Carbon Dioxide 21 mmol/L (22-30); Chloride 107 mmol/L (98-107); Estimated CRCL calculation 72 ml/min; Estimated Glomerular Filt Rate > 60; Glucose 95 mg/dL (65-110); Lipase 97 U/L (23-300); Potassium 4.3 mmol/L (3.4-5.0); Sodium 138 mmol/L (137-145)
[2023-01-24 10:39] LABS: Partial Thromboplastin Time 31.4 SECONDS (22.3-36.8)
[2023-01-24 10:46] LABS: Troponin I < 0.012 ng/mL (0.000-0.034)
--- NOTE | 2023-01-24 13:33 | ECG_ITS ---
Measurements Intervals [place] Rate: 104 P: [place]: 0 QRS: -2 QRSD: 78 T: 263 QT: 367 QTc: 485 Interpretive Statements ATRIAL FIBRILLATION WITH RAPID VENTRICULAR RESPONSE NONSPECIFIC ST AND T-WAVE ABNORMALITY ABNORMAL ECG COMPARED TO ECG 01/24/2023 10:03:18 NO SIGNIFICANT CHANGES Electronically Signed On 01-24-2023 14:58:32 RESIDENTIAL YOUTH COUNSELOR by Jacinto Guerrier M.D.
[2023-01-24 14:38] LABS: Troponin I < 0.012 ng/mL (0.000-0.034)
--- NOTE | 2023-01-24 15:38 | ADMGEN ---
This patient, Moriah Silva, was admitted to IMU Room 203-01. Patient/family oriented to hospital policies and general routines including ID bracelet, bed and alarms, visiting hours, pain management, procedures, bathroom and other care routines, personal items, smoking policy, room service/diet, and visiting hours. Information on how to activate the Rapid Response Team has been discussed. Patient/Family are encouraged to report perceived risks to care and to ask questions if they do not understand what they are told or what they should do.
[2023-01-24 16:45] LABS: Troponin I < 0.012 ng/mL (0.000-0.034)
[2023-01-24] MEDS: ACETAMINOPHEN 325 MG TABLET 650 MG PO (21:22)
[2023-01-24] MEDS: ZOLPIDEM TARTRATE (*CRX) 5 MG TABLET 10 MG PO (21:23)
[2023-01-24] MEDS: APIXABAN 5 MG TABLET PO (21:23)
[2023-01-24] MEDS: SOTALOL HCL 80 MG TABLET PO (21:23)
--- NOTE | 2023-01-24 23:00 | ECG_ITS ---
Measurements Intervals [place] Rate: 102 P: [place]: 0 QRS: 31 QRSD: 76 T: 155 QT: 356 QTc: 465 Interpretive Statements ATRIAL FIBRILLATION WITH RAPID VENTRICULAR RESPONSE ST DEVIATION AND MODERATE T-WAVE ABNORMALITY, CONSIDER LATERAL ISCHEMIA [-0.1+ mV T WAVE IN I/aVL/V5/V6] ST DEVIATION AND MODERATE T-WAVE ABNORMALITY, CONSIDER INFERIOR ISCHEMIA [-0.1+ mV T WAVE IN II/aVF] ABNORMAL ECG COMPARED TO ECG 01/24/2023 13:37:42 NO SIGNIFICANT CHANGES Electronically Signed On 01-25-2023 16:56:33 FORMING DEPARTMENT END FINDER by Ran Gordillo M.D.
[2023-01-25] VITALS (18 sets, daily range): BP systolic 103–143; BP diastolic 65–119; PULSE 56–129; RESP 12–29; TEMP 35.8–36.2; O2SAT 95–100
[2023-01-25] MEDS: APIXABAN 5 MG TABLET PO (08:47)
[2023-01-25] MEDS: ACETAMINOPHEN 325 MG TABLET 650 MG PO (08:47)
[2023-01-25] MEDS: SOTALOL HCL 80 MG TABLET PO (08:48)
[2023-01-25] MEDS: lisinopriL 5 MG TABLET PO (08:48)
--- NOTE | 2023-01-25 11:00 | ECG_ITS ---
Measurements Intervals [place] Rate: 92 P: [place]: 0 QRS: 5 QRSD: 86 T: 36 QT: 409 QTc: 508 Interpretive Statements ATRIAL FIBRILLATION WITH ABERRANT CONDUCTION OR VENTRICULAR PREMATURE COMPLEXES MODERATE ST DEPRESSION [0.05+ mV ST DEPRESSION] ABNORMAL ECG COMPARED TO ECG 01/24/2023 23:04:17 ABERRANT CONDUCTION OF SUPRAVENTRICULAR BEAT(S) NOW PRESENT ST (T WAVE) DEVIATION NOW PRESENT WILL Electronically Signed On 01-26-2023 10:27:42 STAFF SERVICES MANAGER by Ran Gordillo M.D.
--- NOTE | 2023-01-25 13:00 | ECG_ITS ---
Measurements Intervals [place] Rate: 63 P: 16 [place]: 152 QRS: -7 QRSD: 81 T: 18 QT: 472 QTc: 486 Interpretive Statements SINUS RHYTHM WITH OCCASIONAL VENTRICULAR PREMATURE COMPLEXES MODERATE ST DEPRESSION [0.05+ mV ST DEPRESSION] PROLONGED QT INTERVAL ABNORMAL ECG COMPARED TO ECG 01/25/2023 11:48:51 SINUS RHYTHM NOW PRESENT PROLONGED QT INTERVAL NOW PRESENT Electronically Signed On 01-26-2023 10:30:43 SIGNAL HELPER by Ran Gordillo M.D.
--- NOTE | 2023-01-25 13:22 | PM.IMHP ---
H&P: HPI History of Present Illness Date/Time: 01/25/23 13:22 Chief Complaint: Atrial fibrillation with RVR Narrative: This is a 58 year old female of Dr. Guerrier'chuckie who is admitted with atrial fibrillation with RVR. She was recently cardioverted on 01/17/2023 which did restore sinus rhythm, but has converted back to atrial fibrillation. Was recently started on Sotalol. In the ER, she was given a dose of IV Diltiazem which improved her heart rates, but this morning she remains in atrial fibrillation with intermittent RVR. She has not missed any doses of her Eliquis or Sotalol. Review of Systems Review of Systems: All systems reviewed & are unremarkable except as noted in HPI and below (HPI) PMFSH Past Medical History Medical History Chronic low back pain Dyslipidemia Environmental allergies Insomnia 11/08/2016 Intractable migraine without status migrainosus Right hip pain Surgical History Surgical History History of appendectomy 2004 History of repair of right rotator cuff 06/2017 and 09/2017 Hx of section (~1992) 1992 Family History Family History Father Family history of elevated blood lipids Hypertension Mother Family history of arthritis Family history of coronary artery disease Family history of lupus erythematosus Hypertension Social History Social History 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 Smoking packs per day: 0.5 Smoking cigarettes per day: 10.0 Years smoked: 40 Smoking pack-years: 20.00 Smoking status: Former smoker Tobacco type: cigarettes Second hand tobacco smoke exposure: No Smoking end date: 11/30/22 Alcohol intake: never Substance use: never Substance use type: does not use Lack of Transportation: No Lack of Food: Never True Current Housing: I Have Housing Concerned About Future Housing: No Difficulty Paying Gas/Electric Bills: No Difficulty Paying for Meds: No Currently Unemployed: No Education: Trade/Vocational Certificate Difficulty w/ Childcare or Family Care: No Living arrangements: with family Occupation/Education: unemployed Gender identity (if verbalized by the patient): Female Sexual Orientation (if Verbalized by the Patient): Straight or Heterosexual Spiritual care concerns: No Meds Home Medications and Allergies Home Medications Medication Instructions Recorded Confirmed Type apixaban 5 mg tablet (Eliquis) 5 mg PO Q12HR #60 tabs 12/08/22 01/24/23 Rx lisinopril 5 mg tablet 5 mg PO QAM #30 tabs 12/08/22 01/24/23 Rx zolpidem 10 mg tablet 10 mg PO QHS #90 tabs 12/17/22 01/24/23 Rx sotalol 80 mg tablet 80 mg PO BID 01/24/23 01/24/23 History Allergies Allergy/AdvReac Type Severity Reaction Status Date / Time clonazepam Allergy Unknown Hives Verified 01/24/23 10:06 ibuprofen Allergy Unknown Unknown Verified 01/24/23 10:06 NSAIDS (Non-Steroidal Allergy Unknown Anaphylactic Verified 01/24/23 10:06 Anti-Inflamma Shock tramadol Allergy Unknown Hives and Verified 01/24/23 10:06 itching Vital Signs Vital Signs - 24 hr 01/24/23 13:34 01/24/23 14:26 01/24/23 14:41 Temperature Pulse Rate 122 H 89 95 Respiratory Rate 28 H 15 16 Blood Pressure 118/99 H 108/90 Pulse Oximetry 99 98 99 Oxygen Delivery Oxygen Flow Rate 01/24/23 14:51 01/24/23 16:00 01/24/23 16:04 Temperature 36.3 C L 36.7 C Pulse Rate 90 72 94 Respiratory Rate 17 18 14 Blood Pressure 120/94 H 115/69 113/93 H Pulse Oximetry 99 100 97 Oxygen Delivery Oxygen Flow Rate 01/24/23 16:00 01/24/23 16:00 01/24/23 18:00 Temperature Pulse Rate 99 99 112 H Respiratory Rate 18 Blood Pressure Pulse Oximetry 100 Oxygen Delivery Room Air Oxygen Flow Rate 01/24/23 20:43 01/24/23 2
--- NOTE | 2023-01-25 13:28 | WPDMODSED ---
Moderate Sedation Note-Pt Data Patient Data Diagnosis: Atrial fibrillation with RVR Present Complaint: Atrial fibrillation with RVR Procedure to be performed/Plan: Synchronized electrical cardioversion Allergies Allergy/AdvReac Type Severity Reaction Status Date / Time clonazepam Allergy Unknown Hives Verified 01/24/23 10:06 ibuprofen Allergy Unknown Unknown Verified 01/24/23 10:06 NSAIDS (Non-Steroidal Allergy Unknown Anaphylactic Verified 01/24/23 10:06 Anti-Inflamma Shock tramadol Allergy Unknown Hives and Verified 01/24/23 10:06 itching Home Medications Medication Instructions Recorded Confirmed Type apixaban 5 mg tablet (Eliquis) 5 mg PO Q12HR #60 tabs 12/08/22 01/24/23 Rx lisinopril 5 mg tablet 5 mg PO QAM #30 tabs 12/08/22 01/24/23 Rx zolpidem 10 mg tablet 10 mg PO QHS #90 tabs 12/17/22 01/24/23 Rx sotalol 80 mg tablet 80 mg PO BID 01/24/23 01/24/23 History Current Medications: Active Medications Acetaminophen (Acetaminophen 325 Mg Tablet) 650 mg PO Q4H PRN PRN Reason: Pain Rated 1-3 Last Admin: 01/25/23 08:47 Dose: 650 mg Apixaban (Apixaban 5 Mg Tablet) 5 mg PO Q12HR [facility] Last Admin: 01/25/23 08:47 Dose: 5 mg Lisinopril (Lisinopril 5 Mg Tablet) 5 mg PO QAM [facility] Last Admin: 01/25/23 08:48 Dose: 5 mg Sotalol HCl (Sotalol Hcl 80 Mg Tablet) 80 mg PO Q12HR [facility] Last Admin: 01/25/23 08:48 Dose: 80 mg Zolpidem Tartrate (Zolpidem Tartrate (*Crx) 5 Mg Tablet) 10 mg PO QHS [facility] Last Admin: 01/24/23 21:23 Dose: 10 mg Sedation/Anesthesia: No previous sedation/anesthesia problems (including family history). [facility] Past Medical History Medical History Chronic low back pain Dyslipidemia Environmental allergies Insomnia 11/08/2016 Intractable migraine without status migrainosus Right hip pain Surgical History Surgical History History of appendectomy 2004 History of repair of right rotator cuff 06/2017 and 09/2017 Hx of section (~1993) 1992 Family History Family History Father Family history of elevated blood lipids Hypertension Mother Family history of arthritis Family history of coronary artery disease Family history of lupus erythematosus Hypertension Social History Social History 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 Smoking packs per day: 0.5 Smoking cigarettes per day: 10.0 Years smoked: 40 Smoking pack-years: 20.00 Smoking status: Former smoker Tobacco type: cigarettes Second hand tobacco smoke exposure: No Smoking end date: 11/30/22 Alcohol intake: never Substance use: never Substance use type: does not use Lack of Transportation: No Lack of Food: Never True Current Housing: I Have Housing Concerned About Future Housing: No Difficulty Paying Gas/Electric Bills: No Difficulty Paying for Meds: No Currently Unemployed: No Education: Trade/Vocational Certificate Difficulty w/ Childcare or Family Care: No Living arrangements: with family Occupation/Education: unemployed Gender identity (if verbalized by the patient): Female Sexual Orientation (if Verbalized by the Patient): Straight or Heterosexual Spiritual care concerns: No Mod Sed Physical Exam Physical Exam Pre Procedural Exam: Normal: Appearance, Lungs, Neuro Exam, Extremities and Skin and Variation: Heart Rate (Atrial fibrillation with RVR) and Heart Rhythm (Atrial fibrillation with RVR) Hours since solid foods: 15 Hours since liquid intake: 8 Mallampati Classification: class III Internal Medicine - PN: Obj Da Vital Signs Vital Signs: Vital Signs - 24 hr 01/24/23 13:34 01/24/23 14:26 01/24/23 14:41 Temperature Pulse Rate 122 H 89 95 Respiratory Rate 28 H 15 16 Blood Pressure 118/99 H 108/90 Pulse Oximet
--- NOTE | 2023-01-25 13:29 | WPDCARDVER ---
Cardioversion Cardioversion Date of procedure: 01/25/23 Procedure: Synchronized electrical cardioversion Pre-op diagnosis: Atrial fibrillation with RVR Post-op diagnosis: Other (Sinus rhythm) Indications: Atrial fibrillation with RVR Description of procedure: [facility]. Written informed consent obtained. Patient connected to defibrillator with pads placed in an AP position. Patient's hemodynamics and respiratory status were monitored throughout the procedure. Time out performed by HENRY Britton. Total of Propofol 165mg IV and Versed 1mg IV were administered. Once patient was adequately sedated, synchronized cardioversion performed at 200 joules with oriental orthodox of sinus rhythm with 1 shock. Sedation: Propofol 165mg IV administered by Logan Ly MD Versed 1mg IV administered by HENRY Britton. Findings: Successful cardioversion to sinus rhythm with 1 shock at 200 joules Conclusion: Successful cardioversion to sinus rhythm with 1 shock at 200 joules
--- NOTE | 2023-01-25 13:32 | PM.DS ---
DS: Admitting Diagnosis Discharge Date 01/25/2023 Admitting Diagnosis Atrial fibrillation with RVR DS: Discharge Diagnosis Discharge Diagnosis (1) Atrial fibrillation with RVR: Code(s): I48.91 - Unspecified atrial fibrillation Status: Acute DS: Summary Hospital Course Hospital Course: Patient underwent successful cardioversion to sinus rhythm. Patient to remain on Sotalol and Eliquis therapy. No post procedure complications. Outpatient follow up with Dr. Guerrier. Status at Discharge Cognitive/behavioral status at discharge: Stable Functional status at discharge: independent ambulation Overall status at discharge: patient is back to baseline Time Spent with Patient Time attestation: Total time spent providing and/or coordinating discharge services: Exam Const: General: comfortable and no acute distress HENMT: Mouth: Yes moist mucous membranes Eyes: General: appearance normal, both eyes and all related structures Sclera: sclerae normal Resp: Effort & Inspection: normal respiratory effort Cardio: Rate: regular rate Rhythm: regular rhythm Skin: General skin exam: normal color Psych: Mental Status: mental status grossly normal Affect: normal affect DS: Data Data Completed and Pending Labs on day of discharge: Labs from last 24 hours 01/24/23 01/24/23 16:03 13:49 Troponin I < 0.012 < 0.012 Discharge Plan Discharge Attending physician on discharge: Logan Ly Consulting providers: Juliette Phoenix Discharging Clinician: Logan Ly Anticipated Discharge Date/Time: 01/25/23 13:27 Patient Disposition: Home, Self-Care Activity: may shower Diet: heart healthy Patient Instructions: Antibiotic Form Stand Alone Forms: General Discharge Information Follow-up/Referrals: Jacinto Guerrier MD [Physician] - Discharge Medications: Continued Eliquis 5 mg Tablet 5 mg PO Q12HR Qty: 60 2RF lisinopril 5 mg Tablet 5 mg PO QAM Qty: 30 2RF sotalol 80 mg tablet 80 mg PO BID zolpidem 10 mg tablet 10 mg PO QHS Qty: 90 0RF Date of admission: 01/24/23 12:42 Primary Care Provider: Sourav Montelongo Admitting Provider: Jacinto Guerrier Attending physician on admission: Jacinto Guerrier Condition: Improved
--- NOTE | 2023-01-25 15:42 | PCCCNOTE ---
On 01/25/23, the student, [Brandy Bradshaw ], provided care and completed [facility] documentation on this patient. I have reviewed the student's documentation and agree with the findings.
== END 2023-01-25 15:20 | disposition home or self-care (01) ==
LOC: ANHED 12:48 → ANHIMU 15:04
PROVIDERS: Emergency Medicine; Admitting Provider Specialist; Emergency Provider Physician Assistant; PCP Family Medicine; Visit Provider Internal Medicine
PROC: 5A2204Z Restoration of Cardiac Rhythm, Single (ICD-10-PCS; principal; 2023-01-25 12:30)
DX: I48.91 Unspecified atrial fibrillation (principal); I45.9 Conduction disorder, unspecified; I45.81 Long QT syndrome; E78.5 Hyperlipidemia, unspecified; G47.00 Insomnia, unspecified; Z87.891 Personal history of nicotine dependence; Z79.01 Long term (current) use of anticoagulants; Z79.899 Other long term (current) drug therapy
CPT/HCPCS: 36415; 71045; 80053; 83690; 84484; 85025; 85610; 85730; 92960; 93005; 96374; 99285; A9270; G0378; J2250; J2704; J7040

== ENCOUNTER 2024-11-27 11:40 | Inpatient (IN) | payer OTHER, SELFPAY ==
[2024-11-27] VITALS (16 sets, daily range): BP systolic 119–153; BP diastolic 94–123; PULSE 91–174; RESP 18–32; TEMP 36.6–36.8; O2SAT 91–98; BMI 31.2
--- NOTE | ~2024-11-27 | XR_ITS ---
EXAMINATION: XR chest 1V portable COMPARISON: No comparisons available. HISTORY: dyspnea FINDINGS: The lungs are clear, no effusion. No pneumothorax. Heart is normal size. Mediastinal and hilar contours are within normal limits. Bony thorax no acute abnormality. Miscellaneous: None Impression: No acute cardiopulmonary abnormality. Reviewed, dictated and finalized at location P. Impression: No acute cardiopulmonary abnormality.
--- NOTE | 2024-11-27 11:41 | ECG_ITS ---
Test Date: 2024-11-27 11:46:06 Measurements Intervals [place] Rate: 185 P: 0 RI: 0 QRS: 7 QRSD: 73 T: 53 QT: 228 QTc: 401 Interpretive Statements ATRIAL FIBRILLATION WITH RAPID VENTRICULAR RESPONSE ANTEROSEPTAL INFARCT, AGE INDETERMINATE BORDERLINE ST-T WAVE ABNORMALITY- INF/HIGH LAT LEADS ABNORMAL ECG No previous ECG available for comparison Electronically Signed On 11-27-2024 14:17:03 CDT by Grant Fernando D.O.
[2024-11-27 12:12] LABS: Hematocrit 58.5 % (37.0-47.0); Hemoglobin 19.4 g/dL (12.0-15.0); Immature Granulocyte Percent A 0.5 % (0-0.5); Lymphocytes Absolute Auto 3.57 K/mm3 (0.9-3.2); Mean Corpuscular HGB Conc 33.2 g/dl (32-36); Mean Corpuscular Hemoglobin 29.5 pg (26-34); Mean Corpuscular Volume 88.9 fl (80-100); Nucleated Red Blood Cells Absolute Auto 0.000 K/mm3 (0.0-0.012); Nucleated Red Blood Cells Perc 0.0 % (0.0-0.2); Platelet Count Result 392 k/mm3 (150-375); Red Blood Count 6.58 M/mm3 (4.2-5.4); White Blood Count 12.1 K/mm3 (4.5-10.0)
--- NOTE | 2024-11-27 12:15 | ED.SOB ---
HPI - SOB/Dyspnea General Chief Complaint: Shortness of Breath/Dyspnea Stated Complaint: sob, cough Time Seen by Provider: 11/27/24 12:04 History of Present Illness HPI Narrative: 59-year-old female with history of atrial fibrillation on Eliquis and sotalol. History of hypertension. Patient presents to the emergency department with complaints of shortness of breath and a cough as well as feeling like her heart rate is elevated. She has had cough for last month intermittently and states that whenever she gets rapid heart rates she gets triggers of her cough as it went away when she was cardioverted last time. Denies any productive cough, endorses sweating and chills but denies any chest pain or chest pressure. No nausea, vomiting, abdominal pain, back pain, headache, vision changes. Does take Eliquis b.i.d.. No history of blood clots. Does note some swelling in her legs intermittent for last month no history of congestive heart failure. No recent illnesses or sick contacts. Was otherwise in her normal state of health recently. Related Data Home Medications ?Medication ?Instructions ?Recorded ?Confirmed ?Last Taken ?Type sotalol 80 mg tablet 80 mg PO BID 01/24/23 11/27/24 11/27/24 History lisinopril 10 mg tablet 10 mg PO DAILY 08/01/24 11/27/24 11/27/24 History Allergies Allergy/AdvReac Type Severity Reaction Status Date / Time clonazepam Allergy Unknown Hives Verified 11/27/24 15:19 ibuprofen Allergy Unknown Unknown Verified 11/27/24 15:19 NSAIDS (Non-Steroidal Allergy Unknown Anaphylactic Verified 11/27/24 15:19 Anti-Inflamma Shock tramadol Allergy Unknown Hives and Verified 11/27/24 15:19 itching sumatriptan AdvReac Mild Chest Pain Verified 11/27/24 15:19 Review of Systems Review of Systems: As reviewed above in HPI [facility] Past Medical History Medical History (Updated 11/28/24 @ 02:03 by Luis Dietz MD) Chronic cough Atrial fibrillation with RVR Migraine, unspecified, not intractable, without status migrainosus Back pain Tendinitis of right rotator cuff Screening for colon cancer Screening for breast cancer Rotator cuff impingement syndrome of right shoulder Nontraumatic rupture of tendon of right shoulder Neck pain Lateral epicondylitis, right elbow Chronic right shoulder pain Adhesive capsulitis of right shoulder Atrial fibrillation, chronic (~12/2022) Obesity with serious comorbidity Depression History of cardioversion (~01/2023) x2 - 01/2023 Hypertension Chronic low back pain Environmental allergies Dyslipidemia Intractable migraine without status migrainosus Insomnia 11/08/2016 Surgical History Surgical History History of repair of right rotator cuff 06/2017 and 09/2017 History of appendectomy 2005 Hx of section (~1992) 1992 Family History Family History Father Family history of elevated blood lipids Hypertension Mother Family history of arthritis Family history of coronary artery disease Family history of lupus erythematosus Hypertension Social History Social History 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[employer] Smoking packs per day: 0.5 Smoking cigarettes per day: 10.0 Years smoked: 30 Smoking pack-years: 15.00 Smoking status: Former smoker Tobacco type: cigarettes Second hand tobacco smoke exposure: Yes Smoking end date: 02/15/20 Alcohol intake: never Substance use: never Substance use type: does not use Do You Feel Safe in your Home?: Yes Lack of Transportation: YES Lack of Food: Never True Current Housing: I Have Housing Concerned About Future Housing: No Difficulty Paying Gas/Electric Bills: No Difficulty Paying for Meds: No Currently Unemployed: No Education: Associate Degree Difficulty w/ Childcare or Family Care: No Living arrangements: with family Occupation/Education: unemployed Gender identity (if verbalized by the patient): Female Sexual Orientation (if Verbalized by the Patient): Straight or Heterosexual Spiritual care concerns: No Exam Narrative: GENERAL: [Well-appearing, well-nourished, and in no acute distress.] HEAD: [Normocephalic, atraumatic.] EYES: [PERRLA and EOMI.] ENT: Nares clear, no rhinorrhea or epistaxis. Mucous membranes moist. NECK: Supple. CHEST: [Clear to auscultation. No respiratory distress.] HEART: Irregular rate, tachycardic rhythm. No murmur heard. [Normal peripheral pulses.] ABDOMEN: [Soft, nondistended], [nontender], [No rigidity or guarding] EXTREMITIES: Normal range of motion. Trace pitting edema bilaterally equal and symmetric, no calf swelling or asymmetric thighs or calves SKIN: Warm, dry, no rash. NEURO: [No focal deficits]. Alert and oriented [x3.] PSYCH: [Normal mood and affect.] Course Vital Signs Vital signs: Vital Signs Temperature 36.8 C 11/27/24 12:02 Pulse Rate 148 H 11/27/24 12:02 Respiratory Rate 18 11/27/24 12:02 Blood Pressure 119/94 H 11/27/24 12:02 Pulse Oximetry 98 11/27/24 12:02 Temperature 36.6 C 11/28/24 00:00 Pulse Rate 123 H 11/28/24 00:00 Respiratory Rate 28 H 11/28/24 00:00 Blood Pressure 141/107 H 11/28/24 00:00 Pulse Oximetry 97 11/28/24 00:00 Oxygen Delivery Room Air 11/27/24 12:15 MDM - SOB/Dyspnea MDM Narrative Medical decision making narrative: 59-year-old female with history of atrial fibrillation on Eliquis and sotalol. History of hypertension. Patient presents to the emergency department with complaints of shortness of breath and a cough as well as feeling like her heart rate is elevated. She has had cough for last month intermittently and states that whenever she gets rapid heart rates she gets triggers of her cough as it went away when she was cardioverted last time. Denies any productive cough, endorses sweating and chills but denies any chest pain or chest pressure. No nausea, vomiting, abdominal pain, back pain, headache, vision changes. Does take Eliquis b.i.d.. No history of blood clots. Does note some swelling in her legs intermittent for last month no history of congestive heart failure. No recent illnesses or sick contacts. Was otherwise in her normal state of health recently. Patient is awake alert oriented, no chest pain shortness a breath. Tachycardic but blood pressure is within acceptable range. No tachypnea, fever, hypoxemia. Trace pitting edema is noted. Currently she is stable will trial controlling her rate and seeing if that improves her symptoms. Could be potential trigger from viral illness, bacterial illness such as pneumonia, possibility of developing congestive heart failure with pitting edema especially with the setting of AFib. Given that she is currently on sotalol will trial 5 mg pushes of metoprolol Q 5 minutes for rate control. Chest x-ray and EKG obtained. EKG shows global ST depressions consistent with rate dependent ischemia likely. Serial troponins ordered. Patient is chest pain-free at this time. She is anticoagulated with Eliquis took her dose this morning. Patient received a total 3 doses of metoprolol with appropriate rate control currently heart rate between 90 and 110 range. Troponin detectable but not elevated at this time. Laboratory studies show dehydration with hemoconcentration elevated hemoglobin. Given a fluid bolus to try and correct her volume status. Discussed the case with the hospitalist who was comfortable with admission to the IMU at this time for continued evaluation cardiology Consult placed and echocardiogram ordered. patient comfortable with the plan for admission and remains hemodynamically stable at this time and symptoms improved with metoprolol in the ED. Medical Records Attestation: I reviewed the patient's medical records. Lab Data Attestation: I reviewed the patient's lab results. 11/27/24 12:03 11/27/24 12:03 Labs: Lab Results 11/27/24 Range/Units 12:03 WBC 12.1 H (4.5-10.0) K/mm3 RBC 6.58 H (4.2-5.4) M/mm3 Hgb 19.4 H (12.0-15.0) g/dL Hct 58.5 H (37.0-47.0) % MCV 88.9 (80-100) fl MCH 29.5 (26-34) pg MCHC 33.2 (32-36) g/dl RDW 15.2 H (11.5-14.5) % Plt Count 392 H (150-375) k/mm3 MPV 10.8 H (7.4-10.4) fl Immature Gran % (Auto) 0.5 (0-0.5) % Neut % (Auto) 56.9 (45.5-73.1) % Lymph % (Auto) 29.6 (18.3-44.2) % Elliott % (Auto) 10.0 H (2.6-8.5) % Eos % (Auto) 1.9 (0-4.4) % Baso % (Auto) 1.1 (0.2-1.2) % Lymph # (Auto) 3.57 H (0.9-3.2) K/mm3 Elliott # (Auto) 1.2 H (0.1-0.6) K/mm3 Eos # (Auto) 0.2 (0-0.3) K/mm3 Baso # (Auto) 0.1 (0.0-0.1) K/mm3 Abs Immat Gran (auto) 0.06 H (0.00-0.031) K/mm3 Absolute Neuts (auto) 6.9 H (1.3-6.7) K/mm3 Absolute Nucleated RBC 0.000 (0.0-0.012) K/mm3 Nucleated RBC % 0.0 (0.0-0.2) % PT 14.1 (11.1-14.7) Seconds INR 1.1 APTT 29.0 (22.3-36.8) Seconds Sodium 136 L (137-145) mmol/L Potassium 3.3 L (3.4-5.0) mmol/L Chloride 103 (98-107) mmol/L Carbon Dioxide 20 L (22-30) mmol/L Anion Gap 13 H (4-12) mmol/L BUN 20 H (7-17) mg/dL Creatinine 1.14 H (0.7-1.0) mg/dL Estim Creat Clear Calc 54 ml/min Estimated GFR 49 L (59 - ) Glucose 138 H (65-110) mg/dL Calcium 9.5 (8.4-10.2) mg/dL Total Bilirubin 0.7 (0.2-1.3) mg/dL AST 27 (14-36) U/L ALT 22 (6-35) U/L Alkaline Phosphatase 120 (38-126) U/L Troponin I 0.028 (0.000-0.034) ng/mL NT-Pro-B Natriuret Pep 914 H (19.9-100) pg/mL Total Protein 8.5 H (6.3-8.2) g/dL Albumin 4.6 (3.5-5.1) g/dL Imaging Data Attestation: I personally reviewed and interpreted this imaging study as follows: My impression: Impressions Chest X-Ray 11/27/24 12:30 Impression: No acute cardiopulmonary abnormality. Critical Care Time Critical Care Time Critical Care Time: Yes Total Critical Care Time: 35 Discharge Plan Discharge Clinical Impression: Atrial fibrillation with rapid ventricular response, Dehydration Patient Disposition: Still a Patient Condition: Stable
[2024-11-27] MEDS: METOPROLOL TARTRATE INJ 5 MG/5 ML VIAL IV PUSH ×3 (12:18→13:12)
[2024-11-27 12:25] LABS: Alanine Aminotransferase 22 U/L (6-35); Albumin Level 4.6 g/dL (3.5-5.1); Alkaline Phosphatase 120 U/L (38-126); Anion Gap 13 mmol/L (4-12); Aspartate Amino Transferase 27 U/L (14-36); Bilirubin,Total 0.7 mg/dL (0.2-1.3); Blood Urea Nitrogen 20 mg/dL (7-17); Calcium 9.5 mg/dL (8.4-10.2); Carbon Dioxide 20 mmol/L (22-30); Chloride 103 mmol/L (98-107); Estimated CRCL calculation 54 ml/min; Estimated Glomerular Filt Rate 49; Glucose 138 mg/dL (65-110); Potassium 3.3 mmol/L (3.4-5.0); Sodium 136 mmol/L (137-145); Total Protein 8.5 g/dL (6.3-8.2)
[2024-11-27 12:28] LABS: INR 1.1; Prothrombin Time 14.1 Seconds (11.1-14.7)
[2024-11-27 12:29] LABS: Partial Thromboplastin Time 29.0 Seconds (22.3-36.8)
[2024-11-27 12:35] LABS: NT Pro B Type Natriuretic Pept 914 pg/mL (19.9-100); Troponin I 0.028 ng/mL (0.000-0.034)
[2024-11-27] MEDS: LACTATED RINGERS 1,000 ML 999 ML IV CONT (13:11)
--- NOTE | 2024-11-27 13:30 | PM.IMHP ---
H&P: HPI History of Present Illness Date/Time: 11/27/24 13:30 Chief Complaint: Shortness of breath Narrative: 9-year-old female with past medical history of AFib on Eliquis, hypertension, migraines, dyslipidemia, insomnia presented to the ED on 11/27/2024 with complaints of shortness of breath, cough, and feeling as if her heart rate is elevated. Her dry cough has been present intermittently for the last month. She states in the past when she has been in AFib RVR it triggers a cough that goes away after cardioversion. Patient was cardioverted 2 separate times for AFib RVR in January 2023. Denies productive cough. Patient does not or sweating and chills but denies chest pain, chest pressure, nausea, vomiting, abdominal pain, back pain, headache, vision changes. Patient states she has intermittent bilateral pedal edema but denies history of CHF. She is most bothered by the cough that accompanies her dysrhythmia. Initial vital signs BP 119/94, heart rate 148, respirations 18, O2 90% on room air, afebrile. EKG reveals AFib with RVR with rate of 185. CBC significant for appearing hemoconcentrated white count 12.1, RBC 6.58, hemoglobin 19.4 Chemistry significant for K 3.3, CO2 20, anion gap 13, BUN 20, creatinine 1.14, BNP 914, total protein 8.5 Review of Systems Review of Systems: All systems reviewed & are unremarkable except as noted in HPI and below PMFSH Past Medical History Medical History (Updated 11/27/24 @ 23:54 by Hanh Collado, OTTO) Chronic cough Atrial fibrillation with RVR Migraine, unspecified, not intractable, without status migrainosus Back pain Tendinitis of right rotator cuff Screening for colon cancer Screening for breast cancer Rotator cuff impingement syndrome of right shoulder Nontraumatic rupture of tendon of right shoulder Neck pain Lateral epicondylitis, right elbow Chronic right shoulder pain Adhesive capsulitis of right shoulder Atrial fibrillation, chronic (~12/2022) Obesity with serious comorbidity Depression History of cardioversion (~01/2023) x2 - 01/2023 Hypertension Chronic low back pain Environmental allergies Dyslipidemia Intractable migraine without status migrainosus Insomnia 11/08/2016 Surgical History Surgical History History of repair of right rotator cuff 06/2017 and 09/2017 History of appendectomy 2005 Hx of section (~1992) 1992 Family History Family History Father Family history of elevated blood lipids Hypertension Mother Family history of arthritis Family history of coronary artery disease Family history of lupus erythematosus Hypertension Social History Social History 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 Smoking packs per day: 0.5 Smoking cigarettes per day: 10.0 Years smoked: 30 Smoking pack-years: 15.00 Smoking status: Former smoker Tobacco type: cigarettes Second hand tobacco smoke exposure: Yes Smoking end date: 02/15/20 Alcohol intake: never Substance use: never Substance use type: does not use Do You Feel Safe in your Home?: Yes Lack of Transportation: YES Lack of Food: Never True Current Housing: I Have Housing Concerned About Future Housing: No Difficulty Paying Gas/Electric Bills: No Difficulty Paying for Meds: No Currently Unemployed: No Education: Associate Degree Difficulty w/ Childcare or Family Care: No Living arrangements: with family Occupation/Education: unemployed Gender identity (if verbalized by the patient): Female Sexual Orientation (if Verbalized by the Patient): Straight or Heterosexual Spiritual care concerns: No Meds Home Medications and Allergies Home Medications ?Medication ?Instructions ?Recorded ?Confirmed ?Type apixaban 5 mg tablet (Eliquis) 5 mg PO Q12HR #60 tabs 12/08/22 11/27/24 Rx sotalol 80 mg tablet 80 mg PO BID 01/24/23 11/27/24 History zolpidem 10 mg tablet 10 mg PO QHS #90 tabs 06/27/24 11/27/24 Rx lisinopril 10 mg tablet 10 mg PO DAILY 08/01/24 11/27/24 History tirzepatide (weight loss) 2.5 2.5 mg (0.5 mL) subcut WEEKLY #2 mL 11/09/24 11/27/24 Rx mg/0.5 mL subcutaneous pen injector (Zepbound) escitalopram oxalate 10 mg tablet 10 mg PO DAILY #90 tabs 11/12/24 11/27/24 Rx (Lexapro) Allergies Allergy/AdvReac Type Severity Reaction Status Date / Time clonazepam Allergy Unknown Hives Verified 11/27/24 15:19 ibuprofen Allergy Unknown Unknown Verified 11/27/24 15:19 NSAIDS (Non-Steroidal Allergy Unknown Anaphylactic Verified 11/27/24 15:19 Anti-Inflamma Shock tramadol Allergy Unknown Hives and Verified 11/27/24 15:19 itching sumatriptan AdvReac Mild Chest Pain Verified 11/27/24 15:19 Vital Signs Vital Signs - 24 hr 11/27/24 12:02 11/27/24 12:10 11/27/24 12:18 Temperature 98.2 F Pulse Rate 148 H 168 H 174 H Respiratory Rate 18 Blood Pressure 119/94 H Pulse Oximetry 98 11/27/24 12:40 11/27/24 12:41 11/27/24 13:12 Temperature Pulse Rate 146 H 136 H 128 H Respiratory Rate 32 H Blood Pressure 129/114 H Pulse Oximetry 94 11/27/24 13:13 Temperature Pulse Rate 128 H Respiratory Rate 27 H Blood Pressure 137/104 H Pulse Oximetry 93 Exam Narrative: GENERAL: non-toxic appearing, in no acute distress. HEAD: Normocephalic, atraumatic. EYES: PERRLA. Conjunctivae clear. NOSE: Normal no drainage. THROAT: Pharynx clear, no exudate. NECK: Trachea midline. No adenopathy, no masses. RESPIRATORY: Airway patent, respirations nonlabored. CTA. Constant dry cough CARDIOVASCULAR: Irregular rhythm in the 110s. Bilateral trace pedal edema BREASTS: Defer GASTROINTESTINAL: Abdomen is soft and nontender. No organomegaly. Bowel sounds normal in all quadrants. GENITOURINARY: Defer MUSCULOSKELETAL: Moves all extremities. No gross deformities. No calf tenderness. SKIN: Warm, dry, normal color. NEURO: A&O X4. Speech clear PSYCHIATRIC: Normal interaction H&P: Results Labs Labs: Short CBC 11/27/24 Range/Units 12:03 WBC 12.1 H (4.5-10.0) K/mm3 Hgb 19.4 H (12.0-15.0) g/dL Hct 58.5 H (37.0-47.0) % Plt Count 392 H (150-375) k/mm3 BMP 11/27/24 12:03 Sodium 136 L Potassium 3.3 L Chloride 103 Carbon Dioxide 20 L BUN 20 H Creatinine 1.14 H Glucose 138 H Calcium 9.5 Cardiac Enzymes 11/27/24 Range/Units 12:03 Troponin I 0.028 (0.000-0.034) ng/mL Liver Function 11/27/24 Range/Units 12:03 Total Bilirubin 0.7 (0.2-1.3) mg/dL AST 27 (14-36) U/L ALT 22 (6-35) U/L Alkaline Phosphatase 120 (38-126) U/L Albumin 4.6 (3.5-5.1) g/dL Assessment and Plan Assessment and plan (1) Atrial fibrillation with RVR: Code(s): I48.91 - Unspecified atrial fibrillation Status: Acute Assessment and Plan: Patient with chronic AFib and a history of cardioversion x2. EKG reveals AFib with RVR with rate of 185. Patient treated with 5 mg IVP metoprolol x3 with improvement of heart rate into the 110s. After admission to the floor, patient did return to the 140s. 10 mg IV push diltiazem given with improvement again. -cardiology consult -continue sotalol -Continue apixaban Patient has been complaining intermittent pedal edema. BNP 914. Concern for CHF. -echo ordered (2) Hypertension: Qualifiers: Hypertension type: primary hypertension Qualified Code(s): I10 - Essential (primary) hypertension Code(s): I10 - Essential (primary) hypertension Status: Chronic Assessment and Plan: Initial BP 119/94 -continue lisinopril (3) Chronic cough: Code(s): R05.3 - Chronic cough Status: Chronic Assessment and Plan: Patient states she has a chronic dry cough when in AFib that is relieved with cardioversion. However, patient is on lisinopril. -Court Mcallister ordered p.r.n. -monitor for resolution once out of AFib (4) Insomnia: Qualifiers: Insomnia type: unspecified Qualified Code(s): G47.00 - Insomnia, unspecified Code(s): G47.00 - Insomnia, unspecified Status: Chronic Assessment and Plan: Patient has been on Ambien 10 mg HS for years. Okay to continue (5) Depression: Qualifiers: Depression Type: unspecified Qualified Code(s): F32.A - Depression, unspecified Code(s): F32.A - Depression, unspecified Status: Chronic Assessment and Plan: Home Lexapro 10 Plan Diet: Heart healthy diet GI prophylaxis: NA DVT prophylaxis: Eliquis lines/drains: PIV Fluids: 1 L LR Code status: Full Hospitalist MIPS Advance Care Plan I have confirmed that the patient's Advanced Care Plan is present, code status is documented, or surrogate decision maker is listed in patient medical record.: Yes Medication Reconciliation I have utilized all available resources to obtain, update and review the patients current medications (includes all prescriptions, OTC, herbals, cannabis, and nutritional supplements).: Yes
--- NOTE | 2024-11-27 16:33 | ADMGEN ---
This patient, Moriah Silva, was admitted to IMU Room 205-02 at 1449. Patient/family oriented to hospital policies and general routines including ID bracelet, bed and alarms, visiting hours, pain management, procedures, bathroom and other care routines, personal items, smoking policy, room service/diet, and visiting hours. Information on how to activate the Rapid Response Team has been discussed. Patient/Family are encouraged to report perceived risks to care and to ask questions if they do not understand what they are told or what they should do.
[2024-11-27 17:07] LABS: Troponin I 0.015 ng/mL (0.000-0.034)
[2024-11-27] MEDS: guaiFENesin 12 HR 600 MG TABCR PO (20:49)
[2024-11-27] MEDS: BENZONATATE 100 MG CAPSULE PO (20:49)
[2024-11-27] MEDS: APIXABAN 5 MG TABLET PO (20:49)
[2024-11-27] MEDS: SOTALOL HCL 80 MG TABLET PO (20:49)
[2024-11-27] MEDS: ZOLPIDEM TARTRATE (*CRX) 5 MG TABLET 10 MG PO (20:49)
[2024-11-28] VITALS (29 sets, daily range): BP systolic 136–189; BP diastolic 71–134; PULSE 66–156; RESP 14–29; TEMP 36.5–36.8; O2SAT 91–99
--- NOTE | 2024-11-28 | ECG_ITS ---
Test Date: 2024-11-28 10:20:33 Measurements Intervals [place] Rate: 129 P: 0 CA: 0 QRS: 16 QRSD: 75 T: 33 QT: 309 QTc: 453 Interpretive Statements ATRIAL FIBRILLATION WITH RAPID VENTRICULAR RESPONSE CANNOT R/O SEPTAL INFARCT, AGE INDETERMINATE BORDERLINE ST-T WAVE ABNORMALITY- INFERIOR LEADS ABNORMAL ECG Compared to ECG 11/27/2024 11:46:06 HEART RATE HAS DECREASED Electronically Signed On 11-28-2024 10:46:46 CDT by Grant Fernando D.O.
--- NOTE | 2024-11-28 | ECG_ITS ---
Test Date: 2024-11-28 11:40:59 Measurements Intervals [place] Rate: 96 P: 53 MO: 193 QRS: 2 QRSD: 70 T: 40 QT: 368 QTc: 466 Interpretive Statements SINUS RHYTHM ANTEROSEPTAL INFARCT, AGE INDETERMINATE BORDERLINE ST-T WAVE ABNORMALITY- INFERIOR LEADS BASELINE ARTIFACT- I, II, III, AVR, AVL, AVF ABNORMAL ECG Compared to ECG 11/28/2024 10:20:33 Atrial fibrillation no longer present Electronically Signed On 11-28-2024 12:17:30 CDT by Grant Fernando D.O.
[2024-11-28 04:22] LABS: Hematocrit 53.4 % (37.0-47.0); Hemoglobin 17.3 g/dL (12.0-15.0); Mean Corpuscular HGB Conc 32.4 g/dl (32-36); Mean Corpuscular Hemoglobin 29.2 pg (26-34); Mean Corpuscular Volume 90.1 fl (80-100); Platelet Count Result 303 k/mm3 (150-375); Red Blood Count 5.93 M/mm3 (4.2-5.4); White Blood Count 10.2 K/mm3 (4.5-10.0)
[2024-11-28 04:36] LABS: Albumin Level 4.2 g/dL (3.5-5.1); Anion Gap 8 mmol/L (4-12); Blood Urea Nitrogen 19 mg/dL (7-17); Calcium 9.4 mg/dL (8.4-10.2); Carbon Dioxide 23 mmol/L (22-30); Chloride 105 mmol/L (98-107); Estimated CRCL calculation 68 ml/min; Estimated Glomerular Filt Rate > 60; Glucose 100 mg/dL (65-110); Potassium 3.7 mmol/L (3.4-5.0); Sodium 136 mmol/L (137-145)
--- NOTE | 2024-11-28 06:00 | ECHO_ITS ---
Patient Info Name: Moriah Silva Age: 59 years : 1965 Gender: Female Ht: 66 in Wt: 200 lbs BSA: 2.09 m2 HR: 114 bpm BP: 147 / 109 mmHg Heart Rhythm: Atrial Fibrillation Technical Quality: Good Exam Date: 11/28/2024 9:36 AM Patient Status: I Admit Date: 11/27/2024 Exam Type: CA echo dop color flow w con Complete two-dimensional, color flow and Doppler transthoracic echocardiogram is performed with contrast to opacify the left ventricle and to improve the deliniation of the left ventricle endocardial borders. Staff Referring Physician: Dona Carmona Collar Feller: Kellee Sherman Attending Provider: Byron Barrientos MD Contrast/Agitated Saline Contrast/Ag. Saline: Definity Amount: 2.00 ml Summary 1. Left ventricular chamber dimension is normal. 2. Left ventricular systolic function is normal, estimated at 55-60. 3. There is mildly increased left ventricular wall thickness. 4. The left ventricular diastolic function is abnormal. 5. Left atrial chamber dimension is moderately enlarged. 6. Right atrial chamber dimension is mildly enlarged. 7. There is mild to moderate mitral valve regurgitation. 8. The mitral valve has a calcified annulus. 9. There is mild tricuspid valve regurgitation. Left Ventricle Left ventricular chamber dimension is normal. Left ventricular systolic function is normal, estimated at 55-60. There is mildly increased left ventricular wall thickness. The left ventricular diastolic function is abnormal. Right Ventricle Right ventricular chamber dimension is normal. Right ventricular systolic function is normal. Left Atria Left atrial chamber dimension is moderately enlarged. Right Atria Right atrial chamber dimension is mildly enlarged. Atrial Septum Intact interatrial septum visualized by color flow imaging. Aortic Valve The aortic valve is trileaflet. There is mild aortic valve sclerosis. There is no aortic valve stenosis. There is trace aortic valve regurgitation. Pulmonic Valve The pulmonic valve is normal. There is no pulmonic valve stenosis. There is trace pulmonic regurgitation. Mitral Valve The mitral valve has a calcified annulus. There is no mitral valve stenosis. There is mild to moderate mitral valve regurgitation. Tricuspid Valve The tricuspid valve leaflets are normal. There is no significant tricuspid valve stenosis. There is mild tricuspid valve regurgitation. Pericardium/Pleural The pericardium appears normal. There is no pericardial effusion. Inferior Vena Cava Normal inferior vena cava with >50% collapse upon inspiration consistent with normal right atrial pressure, 5 mmHg. Aorta The aortic root size at the sinus of Valsalva is normal. Left Ventricular Outflow Tract Name Value Normal LVOT 2D LVOT Diameter 2.0 cm LVOT Doppler LVOT Peak Velocity 93 cm/s LVOT Peak Gradient 3 mmHg LVOT Mean Gradient 2 mmHg LVOT VTI 14 cm LVOT Stroke Volume 46 ml LVOT CO 5.3 l/min LVOT CI 2.5 l/min/m2 Pulmonic Valve Name Value Normal RVOT Doppler RVOT Peak Velocity 66 cm/s RVOT Peak Gradient 2 mmHg PV Doppler PV Peak Velocity 106 cm/s PV Peak Gradient 5 mmHg Mitral Valve Name Value Normal MV Diastolic Function MV E Peak Velocity 107 cm/s MV A Peak Velocity 34 cm/s MV E/A 3.2 MV Decel Time (PW) 137 ms MV Annular TDI MV E/e' (Septal) 17.0 MV E/e' (Lateral) 13.9 MV E/e' (Average) 15.4 Tricuspid Valve Name Value Normal Estimated PAP/RSVP RA Pressure 5 mmHg <=5 Aortic Valve Name Value Normal AV Doppler AV Peak Velocity 144 cm/s AV Peak Gradient 8 mmHg AV Area (Cont Eq Ye) 2.1 cm2 AV DI (Ye) 0.64 AV Regurgitation 2D LVOT Area 3.2 cm2 Ventricles Name Value Normal LV Dimensions 2D/MM LVOT Diameter 2.0 cm LV Fractional Shortening/Ejection Fraction 2D/MM LV Diastolic Volume (4C MOD) 97 ml LV EF (4C MOD) 64 % LV Diastolic Volume (2C MOD) 71 ml LV EF (2C MOD) 44 % LV Diastolic Volume (BP MOD) 83 ml 46-106 LV Diastolic Volume Index (BP MOD) 40 ml/m2 29-61 LV Systolic Volume (BP MOD) 38 ml 14-42 LV Systolic Volume Index (BP MOD) 18 ml/m2 8-24 LV EF (BP MOD) 55 % 54-74 LV Diastolic Length (4C) 7.1 cm LV Systolic Length (4C) 6.4 cm LV Stroke Volume (4C MOD) 61 ml Atria Name Value Normal LA Dimensions LA Volume (4C A-L) 66 ml LA Volume (BP A-L) 69 ml RA Dimensions RA Systolic Major [place] Length (4C) 5.7 cm 2.2-2.8 RA Area (4C) 14.8 cm2 <=18.0 Report Signatures
[2024-11-28] MEDS: BENZONATATE 100 MG CAPSULE PO ×3 (06:11→20:25)
--- NOTE | 2024-11-28 08:33 | PM.CNCAR ---
Assessment and Plan Assessment and plan (1) Atrial fibrillation with RVR: Code(s): I48.91 - Unspecified atrial fibrillation <Lilo NPhilipp Cuellar, INTERACTIVE WEB DEVELOPER - Last Filed: 11/28/24 08:49> Status: Acute <Lilo NPhilipp Cuellar, INTERACTIVE WEB DEVELOPER - Last Filed: 11/28/24 08:49> (2) Hypertension: Qualifiers: Hypertension type: primary hypertension Qualified Code(s): I10 - Essential (primary) hypertension <Lilo N. Albaglia, INTERACTIVE WEB DEVELOPER - Last Filed: 11/28/24 08:49> Code(s): I10 - Essential (primary) hypertension <Lilo N. Lisamiglia, INTERACTIVE WEB DEVELOPER - Last Filed: 11/28/24 08:49> Status: Chronic <Lilo N. Albaglia, INTERACTIVE WEB DEVELOPER - Last Filed: 11/28/24 08:49> (3) Chronic cough: Code(s): R05.3 - Chronic cough <Lilo NPhilipp Cuellar, INTERACTIVE WEB DEVELOPER - Last Filed: 11/28/24 08:49> Status: Chronic <Lilo N. Albaglia, INTERACTIVE WEB DEVELOPER - Last Filed: 11/28/24 08:49> (4) Dyslipidemia: Code(s): E78.5 - Hyperlipidemia, unspecified <Lilo NPhilipp Cuellar, INTERACTIVE WEB DEVELOPER - Last Filed: 11/28/24 08:49> Status: Acute <Lilo NPhilipp Cuellar, INTERACTIVE WEB DEVELOPER - Last Filed: 11/28/24 08:49> Assessment and Plan: Shortness of breath. Patient presents with acute SOB and cough. Most likely secondary to volume overload in setting of afib with RVR. Her CXR does not demonstrate any acute cardiopulmonary process. EKG shows atrial fibrillation with RVR, but no acute ST/T wave changes. Her troponin have been in normal range at this time. Her pBNP was elevated at 914. She was given 1L of IVF in ER d/t elevated creatinine and concern for dehydration, but now with worsening cough and SOB. Will give one time dose of IV lasix. Last echo demonstrated a normal EF, repeat is pending. Afib with RVR. Rate remains uncontrolled despite IV lopressor and IV push diltiazem in ER. She has been on sotaolol at home, but has had continued episodes of symptomatic atrial fibrillation. We will transition to IV diltiazem this am. Will check Mag level and replete if less than 2. Her potassium was replaced in ER last night. Will check TSH as well. Patient will most likely benefit from cardioversion and can consider later today. She has been on Eliquis and is compliant with therapy so no need for ALLAN at this time. Will most likely need OP referral to EPS as has failed anti-arrhythmic therapy. Chronic cough. May be d/t afib with rvr. Concern secondary to some volume overload. Will give one time dose of IV lasix and monitor. May however, be secondary to her lisinopril and can change to losartan to see if that helps with symptoms. Hypertension. Blood pressure above goal. She was given home lisinopril this am. Will start cardizem drip and montior Hyperlipidemia. Can update lipid panel. Obesity. Lifestyle modification and weight loss encouraged. Consider OP sleep study. <Lilo Cuellar APRN - Last Filed: 11/28/24 08:49> History of Present Illness History of Present Illness Consult date/time: 11/28/24 08:33 <Lilo Cuellar APRN - Last Filed: 11/28/24 08:49> Requesting physician: Hanh Collado APRN <Lilo Cuellar APRN - Last Filed: 11/28/24 08:49> Reason For Visit: afib rvr <Lilo Cuellar APRN - Last Filed: 11/28/24 08:49> Narrative: Moriah Silva is a 59 y.o. female with a PMH of p-afib, HTN, HLD and obesity who presented to the ER with c/o feeling unwell x 3 weeks. Patient reports about 3 weeks ago she developed a cough and noted some palpitations. She could tell that she was going in and out of atrial fibrillation. This weekend symptoms worsened with persistent palpitations, shortness of breath and palpitations. She has cough that is non-productive with speech and minimal activity. She reports she has felt tired and unable to do her normal activities. She denies any chest pain or pressure. No dizziness or feeling light headed. She has been taking medications as prescribed. No recent illness. In the ER patient noted to be in atrial fibrillation with RVR and we were consulted for further evaluation and management <Lilo Cuellar APRN - Last Filed: 11/28/24 08:49> Review of Systems Review of Systems: All systems reviewed & are unremarkable except as noted in HPI and below <Lilo Cuellar APRN - Last Filed: 11/28/24 08:49> [facility] Past Medical History Medical History: Medical History (Updated 11/28/24 @ 08:50 by STEPHEN Butcher) Chronic cough Atrial fibrillation with RVR Migraine, unspecified, not intractable, without status migrainosus Back pain Tendinitis of right rotator cuff Screening for colon cancer Screening for breast cancer Rotator cuff impingement syndrome of right shoulder Nontraumatic rupture of tendon of right shoulder Neck pain Lateral epicondylitis, right elbow Chronic right shoulder pain Adhesive capsulitis of right shoulder Atrial fibrillation, chronic (~12/2022) Obesity with serious comorbidity Depression History of cardioversion (~01/2023) x2 - 01/2023 Hypertension Chronic low back pain Environmental allergies Dyslipidemia Intractable migraine without status migrainosus Insomnia 11/08/2016 <Lilo Cuellar APRN - Last Filed: 11/28/24 08:49> Surgical History Surgical History: Surgical History History of repair of right rotator cuff 06/2017 and 09/2017 History of appendectomy 2005 Hx of section (~1992) 1992 <Lilo Cuellar APRN - Last Filed: 11/28/24 08:49> Family History Family History: Family History Father Family history of elevated blood lipids Hypertension Mother Family history of arthritis Family history of coronary artery disease Family history of lupus erythematosus Hypertension <Lilo Cuellar APRN - Last Filed: 11/28/24 08:49> Social History Social History: Social History 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 Smoking packs per day: 0.5 Smoking cigarettes per day: 10.0 Years smoked: 30 Smoking pack-years: 15.00 Smoking status: Former smoker Tobacco type: cigarettes Second hand tobacco smoke exposure: Yes Smoking end date: 02/15/20 Alcohol intake: never Substance use: never Substance use type: does not use Do You Feel Safe in your Home?: Yes Lack of Transportation: YES Lack of Food: Never True Current Housing: I Have Housing Concerned About Future Housing: No Difficulty Paying Gas/Electric Bills: No Difficulty Paying for Meds: No Currently Unemployed: No Education: Associate Degree Difficulty w/ Childcare or Family Care: No Living arrangements: with family Occupation/Education: unemployed Gender identity (if verbalized by the patient): Female Sexual Orientation (if Verbalized by the Patient): Straight or Heterosexual Spiritual care concerns: No <Lilo Cuellar APRN - Last Filed: 11/28/24 08:49> Meds Home Medications and Allergies Home medications: Home Medications ?Medication ?Instructions ?Recorded ?Confirmed ?Type apixaban 5 mg tablet (Eliquis) 5 mg PO Q12HR #60 tabs 12/08/22 11/27/24 Rx sotalol 80 mg tablet 80 mg PO BID 01/24/23 11/27/24 History zolpidem 10 mg tablet 10 mg PO QHS #90 tabs 06/27/24 11/27/24 Rx lisinopril 10 mg tablet 10 mg PO DAILY 08/01/24 11/27/24 History tirzepatide (weight loss) 2.5 2.5 mg (0.5 mL) subcut WEEKLY #2 mL 11/09/24 11/27/24 Rx mg/0.5 mL subcutaneous pen injector (Zepbound) escitalopram oxalate 10 mg tablet 10 mg PO DAILY #90 tabs 11/12/24 11/27/24 Rx (Lexapro) <Lilo Cuellar APRN - Last Filed: 11/28/24 08:49> Allergies/Adverse reactions: Allergies Allergy/AdvReac Type Severity Reaction Status Date / Time clonazepam Allergy Unknown Hives Verified 11/27/24 15:19 ibuprofen Allergy Unknown Unknown Verified 11/27/24 15:19 NSAIDS (Non-Steroidal Allergy Unknown Anaphylactic Verified 11/27/24 15:19 Anti-Inflamma Shock tramadol Allergy Unknown Hives and Verified 11/27/24 15:19 itching sumatriptan AdvReac Mild Chest Pain Verified 11/27/24 15:19 <Lilo Cuellar, INTERACTIVE WEB DEVELOPER - Last Filed: 11/28/24 08:49> Vital Signs Vital Signs - 24 hr 11/27/24 12:02 11/27/24 12:10 11/27/24 12:15 Temperature 36.8 C Pulse Rate 148 H 168 H Respiratory Rate 18 Blood Pressure 119/94 H Pulse Oximetry 98 Oxygen Delivery Room Air 11/27/24 12:18 11/27/24 12:40 11/27/24 12:41 Temperature Pulse Rate 174 H 146 H 136 H Respiratory Rate 32 H Blood Pressure 129/114 H Pulse Oximetry 94 Oxygen Delivery 11/27/24 13:12 11/27/24 13:13 11/27/24 14:13 Temperature Pulse Rate 128 H 128 H 120 H Respiratory Rate 27 H 20 Blood Pressure 137/104 H 152/123 H Pulse Oximetry 93 98 Oxygen Delivery 11/27/24 14:42 11/27/24 15:39 11/27/24 16:00 Temperature 36.7 C 36.7 C Pulse Rate 116 H 128 H 114 H Respiratory Rate 19 22 H Blood Pressure 138/116 H 144/117 H Pulse Oximetry 96 91 Oxygen Delivery 11/27/24 18:00 11/27/24 19:07 11/27/24 20:00 Temperature 36.7 C 36.6 C Pulse Rate 115 H 91 119 H Respiratory Rate 22 H 21 H Blood Pressure 131/100 H 153/97 H Pulse Oximetry 97 95 Oxygen Delivery 11/27/24 20:00 11/27/24 20:49 11/27/24 22:00 Temperature Pulse Rate 109 H 143 H 119 H Respiratory Rate Blood Pressure Pulse Oximetry Oxygen Delivery 11/28/24 00:00 11/28/24 00:00 11/28/24 02:00 Temperature 36.6 C Pulse Rate 112 H 123 H 111 H Respiratory Rate 28 H Blood Pressure 141/107 H Pulse Oximetry 97 Oxygen Delivery 11/28/24 04:00 11/28/24 04:00 11/28/24 06:00 Temperature 36.8 C Pulse Rate 114 H 116 H 132 H Respiratory Rate 15 Blood Pressure 147/109 H Pulse Oximetry 95 Oxygen Delivery 11/28/24 07:44 11/28/24 07:45 Temperature 36.8 C Pulse Rate 119 H Respiratory Rate 20 Blood Pressure 154/110 H 150/118 H Pulse Oximetry 96 Oxygen Delivery <Lilo Cuellar INTERACTIVE WEB DEVELOPER - Last Filed: 11/28/24 08:49> Exam Const: General: comfortable and no acute distress <Lilo Cuellar, INTERACTIVE WEB DEVELOPER - Last Filed: 11/28/24 08:49> Neck: Neck: supple and no JVD <Lilo Cuellar, INTERACTIVE WEB DEVELOPER - Last Filed: 11/28/24 08:49> Thyroid: thyroid normal <Lilo Cuellar, INTERACTIVE WEB DEVELOPER - Last Filed: 11/28/24 08:49> Resp: Effort & Inspection: normal respiratory effort <Lilo Cuellar INTERACTIVE WEB DEVELOPER - Last Filed: 11/28/24 08:49> Auscultation: clear to auscultation bilaterally <Lilo Cuellar, INTERACTIVE WEB DEVELOPER - Last Filed: 11/28/24 08:49> Cardio: Rate: tachycardic <Lilo Cuellar INTERACTIVE WEB DEVELOPER - Last Filed: 11/28/24 08:49> Rhythm: abnormal rhythm <Lilo Cuellar, INTERACTIVE WEB DEVELOPER - Last Filed: 11/28/24 08:49> Heart sounds: no gallops, no murmurs and no rubs <Lilo Cuellar INTERACTIVE WEB DEVELOPER - Last Filed: 11/28/24 08:49> Other: irreg irreg <Lilo Cuellar, INTERACTIVE WEB DEVELOPER - Last Filed: 11/28/24 08:49> Skin: General skin exam: normal color and rashes and/or lesions noted <Lilo Cuellar INTERACTIVE WEB DEVELOPER - Last Filed: 11/28/24 08:49> Lesions: no lesions noted <Lilo Cuellar, INTERACTIVE WEB DEVELOPER - Last Filed: 11/28/24 08:49> Neuro: Speech: normal speech <Lilo Cuellar INTERACTIVE WEB DEVELOPER - Last Filed: 11/28/24 08:49> Extrem: General: no edema <Lilo Cuellar, INTERACTIVE WEB DEVELOPER - Last Filed: 11/28/24 08:49> Psych: Mental Status: mental status grossly normal <Lilo Cuellar INTERACTIVE WEB DEVELOPER - Last Filed: 11/28/24 08:49> Results Labs and Meds Result diagrams: 11/28/24 04:03 11/28/24 04:03 <Lilo Cuellar INTERACTIVE WEB DEVELOPER - Last Filed: 11/28/24 08:49> Lab results: Cardiac Enzymes 11/27/24 11/27/24 Range/Units 12:03 16:04 AST 27 (14-36) U/L Troponin I 0.028 0.015 D (0.000-0.034) ng/mL Coagulation 11/27/24 Range/Units 12:03 PT 14.1 (11.1-14.7) Seconds APTT 29.0 (22.3-36.8) Seconds CBC 11/27/24 11/28/24 Range/Units 12:03 04:03 WBC 12.1 H 10.2 H (4.5-10.0) K/mm3 RBC 6.58 H 5.93 H (4.2-5.4) M/mm3 Hgb 19.4 H 17.3 H (12.0-15.0) g/dL Hct 58.5 H 53.4 H (37.0-47.0) % Plt Count 392 H 303 (150-375) k/mm3 Lymph # (Auto) 3.57 H (0.9-3.2) K/mm3 [place] # (Auto) 1.2 H (0.1-0.6) K/mm3 Eos # (Auto) 0.2 (0-0.3) K/mm3 Baso # (Auto) 0.1 (0.0-0.1) K/mm3 Comprehensive Metabolic Panel 11/27/24 11/28/24 Range/Units 12:03 04:03 Sodium 136 L 136 L (137-145) mmol/L Potassium 3.3 L 3.7 (3.4-5.0) mmol/L Chloride 103 105 (98-107) mmol/L Carbon Dioxide 20 L 23 (22-30) mmol/L BUN 20 H 19 H (7-17) mg/dL Creatinine 1.14 H 0.89 (0.7-1.0) mg/dL Glucose 138 H 100 (65-110) mg/dL Calcium 9.5 9.4 (8.4-10.2) mg/dL AST 27 (14-36) U/L ALT 22 (6-35) U/L Alkaline Phosphatase 120 (38-126) U/L Total Protein 8.5 H (6.3-8.2) g/dL Albumin 4.6 4.2 (3.5-5.1) g/dL Intake and Output 11/27/24 11/28/24 11/28/24 23:59 07:59 15:59 Intake Total 490 250 Output Total 2 Balance 490 248 Intake: Oral 490 250 Output: Urine 2 Other: # Unmeasured Voids 1 Patient Weight 11/28/24 23:59 Weight 90.8 kg <Lilo Cuellar APRN - Last Filed: 11/28/24 08:49> Imaging and Cardiology Echo: report reviewed (2022 EF normal with mild MR and TR, LVH noted ) <Lilo Cuellar APRN - Last Filed: 11/28/24 08:49> EKG results: image reviewed <Lilo Cuellar APRN - Last Filed: 11/28/24 08:49> EKG Interpretation EKG shows: atrial fibrillation (with rate of [address]/T wave changes ) <Lilo Cuellar APRN - Last Filed: 11/28/24 08:49> Attestation Supervising Provider Attestation Attending attestation: 59-year-old with history of atrial fibrillation. Cardioverted previously x2. Patient of Dr. Guerrier who came to hospital due to symptoms of shortness breath and cough. He are her cyst typical symptoms that she has never she is in atrial fibrillation. She was indeed found to be in atrial fibrillation and attends for rate control were made. She is on chronic sotalol and diltiazem was initiated without significant improvement in heart rate. She denies any chest pain, syncope, presyncope. She has not missed any doses of Eliquis and greater than 4 weeks. Objective: Heart rate 120s to 150s. She is awake alert oriented appears to be in no acute distress. She appears stated age. Normocephalic atraumatic. Lungs are clear to auscultation bilaterally. Cardiac exam reveals irregular irregular rhythm tachycardic. Abdomen is soft. Extremities showed no edema. Neuro: Alert oriented. No focal abnormalities. Psych: Not anxious. Feels okay. Skin: Warm dry. Musculoskeletal no reproducible chest wall pain to palpation. Assessment: 1. Shortness of breath: Related atrial fibrillation with rapid ventricular response 2. Atrial fibrillation rapid ventricular response: On sotalol and on Eliquis without any missed doses 3. Hypertension: Above goal 4. Chronic cough: May be related to lisinopril or the atrial fibrillation itself. 5. Chronic anticoagulation: No bleeding issues Plan: For her atrial fibrillation, she has not missed any doses of Eliquis. She remains on sotalol. Electrolytes this morning showed potassium 3.7. Will keep NPO and plan for cardioversion. She has not missed any doses of Eliquis and ALLAN is not required. On an outpatient basis, patient should be referred to electrophysiology for consideration of ablation given antiarrhythmic failure. Repeat echo is pending. Hypertension: Continue lisinopril and sotalol for now and can up titrate or add to this regimen as need be. Chronic anticoagulation: Continue Eliquis 5 mg p.o. b.i.d. 46 minutes of combined decision making is made and spent in discussing the patient, personally interviewing, examining patient and formulating and assessment and plan. Ran Gordillo MD, [facility] <Ran Gordillo MD - Last Filed: 11/28/24 10:57>
[2024-11-28] MEDS: APIXABAN 5 MG TABLET PO ×2 (08:38→20:25)
[2024-11-28] MEDS: ESCITALOPRAM OXALATE 10 MG TABLET PO (08:38)
[2024-11-28] MEDS: guaiFENesin 12 HR 600 MG TABCR PO ×2 (08:38→20:25)
--- NOTE | 2024-11-28 08:44 | P.PNIM_ITS ---
Progress Note: A&P Assessment and Plan (1) Atrial fibrillation with RVR: Code(s): I48.91 - Unspecified atrial fibrillation Status: Acute Assessment and Plan: Patient with chronic AFib and a history of cardioversion x2. EKG reveals AFib with RVR with rate of 185. Patient treated with 5 mg IVP metoprolol x3 with improvement of heart rate into the 110s. After admission to the floor, patient did return to the 140s. 10 mg IV push diltiazem given with improvement again. - echo 11/28 with EF 55%, abnormal diastolic function, mold-mod MR -cardiology consulted - s/p cardioversion 11/28 with conversion to NSR. Planning to monitor overnight. -continue sotalol, apixaban (2) Hypertension: Qualifiers: Hypertension type: primary hypertension Qualified Code(s): I10 - Essential (primary) hypertension Code(s): I10 - Essential (primary) hypertension Status: Chronic Assessment and Plan: - with elevated trends - cardio stopped lisinopril due to cough and started losartan (3) Chronic cough: Code(s): R05.3 - Chronic cough Status: Chronic Assessment and Plan: Patient states she has a chronic dry cough when in AFib that is relieved with cardioversion. However, patient is on lisinopril. -Court everett p.r.n. -monitor for resolution once out of AFib (4) Insomnia: Qualifiers: Insomnia type: unspecified Qualified Code(s): G47.00 - Insomnia, unspecified Code(s): G47.00 - Insomnia, unspecified Status: Chronic Assessment and Plan: - continue Ambien (5) Depression: Qualifiers: Depression Type: unspecified Qualified Code(s): F32.A - Depression, unspecified Code(s): F32.A - Depression, unspecified Status: Chronic Assessment and Plan: - continue home Lexapro (6) SHENA (acute kidney injury): Code(s): N17.9 - Acute kidney failure, unspecified Status: Acute Assessment and Plan: - Cr 1.14 on admission. Baseline 0.89. - Received IV fluids with improvement in Cr - monitor BMP Plan DVT prophylaxis: Eliquis Code status: Full Disposition: likely discharge in AM if remains in NSR and BP improved Subjective Date/time seen: 11/28/24 08:44 Interval history: Patient seen and examined at bedside. Still having a cough with mild dyspnea that she feels is related to Afib with RVR. Denied chest pain. Review of Systems Review of Systems: All systems reviewed & are unremarkable except as noted in HPI and below Exam Narrative: General: NAD Eyes: EOMI ENT: neck supple Cardiovascular: irregularly irregular Respiratory: Clear to auscultation, respirations even and unlabored on RA Gastrointestinal: Soft, non tender Genitourinary: no suprapubic tenderness Musculoskeletal: No edema Skin: warm, dry Neuro: Alert. Psych: Mood appropriate Objective Data Vital Signs Vital Signs: Vital Signs - 24 hr 11/27/24 12:02 11/27/24 12:10 11/27/24 12:15 Temperature 98.2 F Pulse Rate 148 H 168 H Respiratory Rate 18 Blood Pressure 119/94 H Pulse Oximetry 98 Oxygen Delivery Room Air 11/27/24 12:18 11/27/24 12:40 11/27/24 12:41 Temperature Pulse Rate 174 H 146 H 136 H Respiratory Rate 32 H Blood Pressure 129/114 H Pulse Oximetry 94 Oxygen Delivery 11/27/24 13:12 11/27/24 13:13 11/27/24 14:13 Temperature Pulse Rate 128 H 128 H 120 H Respiratory Rate 27 H 20 Blood Pressure 137/104 H 152/123 H Pulse Oximetry 93 98 Oxygen Delivery 11/27/24 14:42 11/27/24 15:39 11/27/24 16:00 Temperature 98.1 F 98.0 F Pulse Rate 116 H 128 H 114 H Respiratory Rate 19 22 H Blood Pressure 138/116 H 144/117 H Pulse Oximetry 96 91 Oxygen Delivery 11/27/24 18:00 11/27/24 19:07 11/27/24 20:00 Temperature 98.0 F 97.9 F Pulse Rate 115 H 91 119 H Respiratory Rate 22 H 21 H Blood Pressure 131/100 H 153/97 H Pulse Oximetry 97 95 Oxygen Delivery 11/27/24 20:00 11/27/24 20:49 11/27/24 22:00 Temperature Pulse Rate 109 H 143 H 119 H Respiratory Rate Blood Pressure Pulse Oximetry Oxygen Delivery 11/28/24 00:00 11/28/24 00:00 11/28/24 02:00 Temperature 97.8 F Pulse Rate 112 H 123 H 111 H Respiratory Rate 28 H Blood Pressure 141/107 H Pulse Oximetry 97 Oxygen Delivery 11/28/24 04:00 11/28/24 04:00 11/28/24 06:00 Temperature 98.3 F Pulse Rate 114 H 116 H 132 H Respiratory Rate 15 Blood Pressure 147/109 H Pulse Oximetry 95 Oxygen Delivery 11/28/24 07:44 11/28/24 07:45 Temperature 98.3 F Pulse Rate 119 H Respiratory Rate 20 Blood Pressure 154/110 H 150/118 H Pulse Oximetry 96 Oxygen Delivery Intake/Output Intake/Output: Intake & Output 11/25/24 11/26/24 11/27/24 11/28/24 23:59 23:59 23:59 23:59 Intake Total 1490 250 Output Total 2 Balance 1490 248 Meds/Results Medications: Active Medications Generic Name Dose Route Start Last Admin Trade Name Freq PRN Reason Stop Dose Admin Apixaban 5 mg 11/27/24 21:00 11/28/24 08:38 Apixaban 5 Mg Tablet PO 5 mg Q12HR CHYNA Administration Benzonatate 100 mg 11/27/24 19:28 11/28/24 06:11 Benzonatate 100 Mg Capsule PO 100 mg TID PRN Administration Cough Escitalopram Oxalate 10 mg 11/28/24 09:00 11/28/24 08:38 Escitalopram Oxalate 10 Mg Tablet PO 10 mg DAILY CHYNA Administration Furosemide 40 mg 11/28/24 08:45 Furosemide Inj 40 Mg/4 Ml Vial IV PUSH 11/28/24 08:46 ONCE ONE Guaifenesin 600 mg 11/27/24 20:31 11/28/24 08:38 Guaifenesin 12 Hr 600 Mg Tabcr PO 600 mg Q12H PRN Administration Congestion Diltiazem HCl 100 mg in 100 mls @ 5 mls/hr 11/28/24 08:45 Cardizem 100 Mg/100 Ml IV CONT .Q20H CHYNA 5 MG/HR Lisinopril 10 mg 11/28/24 09:00 11/28/24 08:38 Lisinopril 10 Mg Tablet PO 10 mg DAILY CHYNA Administration Perflutren Lipid Microsphere 0 ml 11/27/24 13:27 Perflutren Lipid Microspheres 1.5 Ml Vial Diluted To 10 Ml Total Volume IV PUSH 11/30/24 13:29 ONCE PRN adequate visualization Protocol Sotalol HCl 80 mg 11/27/24 21:00 11/27/24 20:49 Sotalol Hcl 80 Mg Tablet PO 80 mg On Hold: 11/28/24 08:32 Q12HR CHYNA Administration Zolpidem Tartrate 10 mg 11/27/24 21:00 11/27/24 20:49 Zolpidem Tartrate (*Crx) 5 Mg Tablet PO 10 mg QHS CHYNA Administration Radiology Results: ITS Impressions Chest X-Ray 11/27/24 12:30 Impression: No acute cardiopulmonary abnormality. Labs Labs: Laboratory Results - last 24 hr 11/27/24 11/27/24 11/28/24 12:03 16:04 04:03 WBC 12.1 H 10.2 H RBC 6.58 H 5.93 H Hgb 19.4 H 17.3 H Hct 58.5 H 53.4 H MCV 88.9 90.1 MCH 29.5 29.2 MCHC 33.2 32.4 RDW 15.2 H 14.6 H Plt Count 392 H 303 MPV 10.8 H 10.9 H Immature Gran % (Auto) 0.5 Neut % (Auto) 56.9 Lymph % (Auto) 29.6 [place] % (Auto) 10.0 H Eos % (Auto) 1.9 Baso % (Auto) 1.1 Lymph # (Auto) 3.57 H [place] # (Auto) 1.2 H Eos # (Auto) 0.2 Baso # (Auto) 0.1 Abs Immat Gran (auto) 0.06 H Absolute Neuts (auto) 6.9 H Absolute Nucleated RBC 0.000 Nucleated RBC % 0.0 PT 14.1 INR 1.1 APTT 29.0 Sodium 136 L 136 L Potassium 3.3 L 3.7 Chloride 103 105 Carbon Dioxide 20 L 23 Anion Gap 13 H 8 BUN 20 H 19 H Creatinine 1.14 H 0.89 Estim Creat Clear Calc 54 68 Estimated GFR 49 L > 60 Glucose 138 H 100 Calcium 9.5 9.4 Phosphorus 3.8 Total Bilirubin 0.7 AST 27 ALT 22 Alkaline Phosphatase 120 Troponin I 0.028 0.015 D NT-Pro-B Natriuret Pep 914 H Total Protein 8.5 H Albumin 4.6 4.2
[2024-11-28] MEDS: FUROSEMIDE INJ 40 MG/4 ML VIAL IV PUSH (08:51)
[2024-11-28] MEDS: dilTIAZem 100 MG/100 ML 100 MG/100 ML BAG IV CONT (08:51)
[2024-11-28 08:59] LABS: Magnesium 2.0 mg/dL (1.6-2.3)
[2024-11-28 09:39] LABS: Thyroid Stimulating Hormone Reflex 1.580 uIU/mL (0.465-4.68)
[2024-11-28] MEDS: PERFLUTREN LIPID MICROSPHERES 1.5 ML VIAL DILUTED TO 10 ML TOTAL VOLUME IV PUSH (10:42)
--- NOTE | 2024-11-28 10:42 | IVDEFINITY ---
Prior to administration of IV Definity the patient was educated on the risks and benefits of the imaging enhancing agent including potential adverse side effects. The patient verbalized understanding. Allergies were verified. No exclusion criteria were identified and at least one of the following inclusion criteria were met: 1) physician request, 2) patient technically difficult to image (per the [place] [employer] guidelines of two or more segments not discernable within the apical view), or 3) questionable left ventricular function. ?
--- NOTE | 2024-11-28 10:58 | WPDMODSED ---
Moderate Sedation Note-Pt Data Patient Data Diagnosis: Atrial fibrillation with rapid ventricular response Present Complaint: Atrial fibrillation with rapid ventricular response Procedure to be performed/Plan: Moderate sedation Electrical cardioversion Allergies Allergy/AdvReac Type Severity Reaction Status Date / Time clonazepam Allergy Unknown Hives Verified 11/27/24 15:19 ibuprofen Allergy Unknown Unknown Verified 11/27/24 15:19 NSAIDS (Non-Steroidal Allergy Unknown Anaphylactic Verified 11/27/24 15:19 Anti-Inflamma Shock tramadol Allergy Unknown Hives and Verified 11/27/24 15:19 itching sumatriptan AdvReac Mild Chest Pain Verified 11/27/24 15:19 Home Medications ?Medication ?Instructions ?Recorded ?Confirmed ?Type apixaban 5 mg tablet (Eliquis) 5 mg PO Q12HR #60 tabs 12/08/22 11/27/24 Rx sotalol 80 mg tablet 80 mg PO BID 01/24/23 11/27/24 History zolpidem 10 mg tablet 10 mg PO QHS #90 tabs 06/27/24 11/27/24 Rx lisinopril 10 mg tablet 10 mg PO DAILY 08/01/24 11/27/24 History tirzepatide (weight loss) 2.5 2.5 mg (0.5 mL) subcut WEEKLY #2 mL 11/09/24 11/27/24 Rx mg/0.5 mL subcutaneous pen injector (Zepbound) escitalopram oxalate 10 mg tablet 10 mg PO DAILY #90 tabs 11/12/24 11/27/24 Rx (Lexapro) Current Medications: Active Medications Acetaminophen (Acetaminophen 500 Mg Tablet) 1,000 mg PO Q6H PRN PRN Reason: Mild Pain (1-3) or Fever Apixaban (Apixaban 5 Mg Tablet) 5 mg PO Q12HR CHYNA Last Admin: 11/28/24 08:38 Dose: 5 mg Benzonatate (Benzonatate 100 Mg Capsule) 100 mg PO TID PRN PRN Reason: Cough Last Admin: 11/28/24 06:11 Dose: 100 mg Escitalopram Oxalate (Escitalopram Oxalate 10 Mg Tablet) 10 mg PO DAILY CHYNA Last Admin: 11/28/24 08:38 Dose: 10 mg Guaifenesin (Guaifenesin 12 Hr 600 Mg Tabcr) 600 mg PO Q12H PRN PRN Reason: Congestion Last Admin: 11/28/24 08:38 Dose: 600 mg Diltiazem HCl (Cardizem 100 Mg/100 Ml) 100 mg in 100 mls @ 5 mls/hr IV CONT .Q20H CHYNA Last Admin: 11/28/24 08:51 Dose: 5 mg/hr, 5 mls/hr Losartan Potassium (Losartan Potassium 25 Mg Tablet) 25 mg PO DAILY CHYNA Sotalol HCl (Sotalol Hcl 80 Mg Tablet) 80 mg PO Q12HR CHYNA On Hold: 11/28/24 08:32 Last Admin: 11/27/24 20:49 Dose: 80 mg Zolpidem Tartrate (Zolpidem Tartrate (*Crx) 5 Mg Tablet) 10 mg PO QHS CHYNA Last Admin: 11/27/24 20:49 Dose: 10 mg Sedation/Anesthesia: No previous sedation/anesthesia problems (including family history). [facility] Past Medical History Medical History (Updated 11/28/24 @ 08:50 by STEPHEN Butcher) Chronic cough Atrial fibrillation with RVR Migraine, unspecified, not intractable, without status migrainosus Back pain Tendinitis of right rotator cuff Screening for colon cancer Screening for breast cancer Rotator cuff impingement syndrome of right shoulder Nontraumatic rupture of tendon of right shoulder Neck pain Lateral epicondylitis, right elbow Chronic right shoulder pain Adhesive capsulitis of right shoulder Atrial fibrillation, chronic (~12/2022) Obesity with serious comorbidity Depression History of cardioversion (~01/2023) x2 - 01/2023 Hypertension Chronic low back pain Environmental allergies Dyslipidemia Intractable migraine without status migrainosus Insomnia 11/08/2016 Surgical History Surgical History History of repair of right rotator cuff 06/2017 and 09/2017 History of appendectomy 2005 Hx of section (~1992) 1992 Family History Family History Father Family history of elevated blood lipids Hypertension Mother Family history of arthritis Family history of coronary artery disease Family history of lupus erythematosus Hypertension Social History Social History 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[employer] Smoking packs per day: 0.5 Smoking cigarettes per day: 10.0 Years smoked: 30 Smoking pack-years: 15.00 Smoking status: Former smoker Tobacco type: cigarettes Second hand tobacco smoke exposure: Yes Smoking end date: 02/15/20 Alcohol intake: never Substance use: never Substance use type: does not use Do You Feel Safe in your Home?: Yes Lack of Transportation: YES Lack of Food: Never True Current Housing: I Have Housing Concerned About Future Housing: No Difficulty Paying Gas/Electric Bills: No Difficulty Paying for Meds: No Currently Unemployed: No Education: Associate Degree Difficulty w/ Childcare or Family Care: No Living arrangements: with family Occupation/Education: unemployed Gender identity (if verbalized by the patient): Female Sexual Orientation (if Verbalized by the Patient): Straight or Heterosexual Spiritual care concerns: No Mod Sed Physical Exam Physical Exam Pre Procedural Exam: Normal: Appearance, Eyes, Ears, Nose, Neck, Throat, Airway, Lungs, Heart Size, Neuro Exam, Extremities and Skin and Variation: Heart Rate (Tachycardic) and Heart Rhythm (Irregularly irregular) Hours since solid foods: 4 Hours since liquid intake: 4 Mallampati Classification: class II Internal Medicine - PN: Obj Da Vital Signs Vital Signs: Vital Signs - 24 hr 11/27/24 12:02 11/27/24 12:10 11/27/24 12:15 Temperature 36.8 C Pulse Rate 148 H 168 H Respiratory Rate 18 Blood Pressure 119/94 H Pulse Oximetry 98 Oxygen Delivery Room Air 11/27/24 12:18 11/27/24 12:40 11/27/24 12:41 Temperature Pulse Rate 174 H 146 H 136 H Respiratory Rate 32 H Blood Pressure 129/114 H Pulse Oximetry 94 Oxygen Delivery 11/27/24 13:12 11/27/24 13:13 11/27/24 14:13 Temperature Pulse Rate 128 H 128 H 120 H Respiratory Rate 27 H 20 Blood Pressure 137/104 H 152/123 H Pulse Oximetry 93 98 Oxygen Delivery 11/27/24 14:42 11/27/24 15:39 11/27/24 16:00 Temperature 36.7 C 36.7 C Pulse Rate 116 H 128 H 114 H Respiratory Rate 19 22 H Blood Pressure 138/116 H 144/117 H Pulse Oximetry 96 91 Oxygen Delivery 11/27/24 18:00 11/27/24 19:07 11/27/24 20:00 Temperature 36.7 C 36.6 C Pulse Rate 115 H 91 119 H Respiratory Rate 22 H 21 H Blood Pressure 131/100 H 153/97 H Pulse Oximetry 97 95 Oxygen Delivery 11/27/24 20:00 11/27/24 20:49 11/27/24 22:00 Temperature Pulse Rate 109 H 143 H 119 H Respiratory Rate Blood Pressure Pulse Oximetry Oxygen Delivery 11/28/24 00:00 11/28/24 00:00 11/28/24 02:00 Temperature 36.6 C Pulse Rate 112 H 123 H 111 H Respiratory Rate 28 H Blood Pressure 141/107 H Pulse Oximetry 97 Oxygen Delivery 11/28/24 04:00 11/28/24 04:00 11/28/24 06:00 Temperature 36.8 C Pulse Rate 114 H 116 H 132 H Respiratory Rate 15 Blood Pressure 147/109 H Pulse Oximetry 95 Oxygen Delivery 11/28/24 07:44 11/28/24 07:45 11/28/24 08:51 Temperature 36.8 C Pulse Rate 119 H 153 H Respiratory Rate 20 Blood Pressure 154/110 H 150/118 H 148/126 H Pulse Oximetry 96 Oxygen Delivery 11/28/24 09:19 11/28/24 10:16 Temperature Pulse Rate 140 H Respiratory Rate 18 Blood Pressure 161/124 H Pulse Oximetry 94 96 Oxygen Delivery Room Air Room Air Intake/Output Intake/Output: Intake & Output 11/25/24 11/26/24 11/27/24 11/28/24 23:59 23:59 23:59 23:59 Intake Total 1490 490 Output Total 2 Balance 1490 488 Meds/Results Medications: Active Medications Generic Name Dose Route Start Last Admin Trade Name Freq PRN Reason Stop Dose Admin Acetaminophen 1,000 mg 11/28/24 09:55 Acetaminophen 500 Mg Tablet PO Q6H PRN Mild Pain (1-3) or Fever Apixaban 5 mg 11/27/24 21:00 11/28/24 08:38 Apixaban 5 Mg Tablet PO 5 mg Q12HR CHYNA Administration Benzonatate 100 mg 11/27/24 19:28 11/28/24 06:11 Benzonatate 100 Mg Capsule PO 100 mg TID PRN Administration Cough Escitalopram Oxalate 10 mg 11/28/24 09:00 11/28/24 08:38 Escitalopram Oxalate 10 Mg Tablet PO 10 mg DAILY CHYNA Administration Guaifenesin 600 mg 10/14/25 20:31 11/28/24 08:38 Guaifenesin 12 Hr 600 Mg Tabcr PO 600 mg Q12H PRN Administration Congestion Diltiazem HCl 100 mg in 100 mls @ 5 mls/hr 11/28/24 08:45 11/28/24 08:51 Cardizem 100 Mg/100 Ml IV CONT 5 mg/hr .Q20H CHYNA 5 mls/hr 5 MG/HR Administration Losartan Potassium 25 mg 11/29/24 09:00 Losartan Potassium 25 Mg Tablet PO DAILY CHYNA Sotalol HCl 80 mg 11/27/24 21:00 11/27/24 20:49 Sotalol Hcl 80 Mg Tablet PO 80 mg On Hold: 11/28/24 08:32 Q12HR CHYNA Administration Zolpidem Tartrate 10 mg 11/27/24 21:00 11/27/24 20:49 Zolpidem Tartrate (*Crx) 5 Mg Tablet PO 10 mg QHS CHYNA Administration Radiology Results: ITS Impressions Chest X-Ray 11/27/24 12:30 Impression: No acute cardiopulmonary abnormality. Labs 11/28/24 04:03 11/28/24 04:03 Labs: Laboratory Results - last 24 hr 11/27/24 11/27/24 11/28/24 12:03 16:04 04:03 WBC 12.1 H 10.2 H RBC 6.58 H 5.93 H Hgb 19.4 H 17.3 H Hct 58.5 H 53.4 H MCV 88.9 90.1 MCH 29.5 29.2 MCHC 33.2 32.4 RDW 15.2 H 14.6 H Plt Count 392 H 303 MPV 10.8 H 10.9 H Immature Gran % (Auto) 0.5 Neut % (Auto) 56.9 Lymph % (Auto) 29.6 Stephenson % (Auto) 10.0 H Eos % (Auto) 1.9 Baso % (Auto) 1.1 Lymph # (Auto) 3.57 H Stephenson # (Auto) 1.2 H Eos # (Auto) 0.2 Baso # (Auto) 0.1 Abs Immat Gran (auto) 0.06 H Absolute Neuts (auto) 6.9 H Absolute Nucleated RBC 0.000 Nucleated RBC % 0.0 PT 14.1 INR 1.1 APTT 29.0 Sodium 136 L 136 L Potassium 3.3 L 3.7 Chloride 103 105 Carbon Dioxide 20 L 23 Anion Gap 13 H 8 BUN 20 H 19 H Creatinine 1.14 H 0.89 Estim Creat Clear Calc 54 68 Estimated GFR 49 L > 60 Glucose 138 H 100 Calcium 9.5 9.4 Phosphorus 3.8 Magnesium 2.0 Total Bilirubin 0.7 AST 27 ALT 22 Alkaline Phosphatase 120 Troponin I 0.028 0.015 D NT-Pro-B Natriuret Pep 914 H Total Protein 8.5 H Albumin 4.6 4.2 TSH (Reflex) 1.580 ASA Classification/Sedation ASA Classification/Sedation ASA Class: II Emergent: No Risks: Risks, benefits and alternatives explained and patient/family accepted plan for sedation. Patient re-evaluated immediately prior to sedation.
--- NOTE | 2024-11-28 11:44 | WPDCARDVER ---
Cardioversion Cardioversion Date of procedure: 11/28/24 Procedure: Moderate sedation Electrical cardioversion Pre-op diagnosis: Atrial fibrillation with rapid ventricular response Post-op diagnosis: Same Indications: Atrial fibrillation Description of procedure: After discussing the risks, benefits alternatives of procedure patient agreeable via verbal and written informed consent. Risks discussed include skin irritation or burn, adverse reaction anesthesia, stroke, , shocked thing to more problematic heart rhythm. After establishing continuous telemetry monitoring, pulse oxygenation and serial blood pressure assessments, time-out was taken the procedure was started Procedure start time 11:20 a.m. Procedure stop time 11:34 a.m. Complications: None Blood loss: None A total 4 mg of Versed and 100 mcg of fentanyl IV was given in divided dosages for adequate sedation. Medications were administered patient was monitored by Jackson Michelle RN. Patient was sedated at time of cardioversion. Sedation: As detailed above. 4 mg of Versed IV and 100 mcg of fentanyl IV given in divided dosages Findings: Atrial fibrillation with rapid ventricular response was confirmed. Successful episcopalian of sinus rhythm using 150 joules of synchronized biphasic energy Conclusion: 1. Moderate sedation 2. Successful episcopalian of sinus rhythm from atrial fibrillation with rapid ventricular response using 150 joules of biphasic synchronized energy
[2024-11-28] MEDS: METOPROLOL TARTRATE INJ 5 MG/5 ML VIAL IV PUSH (11:45)
[2024-11-28] MEDS: MIDAZOLAM HCL (*CRX) 2 MG/2 ML VIAL 4 MG IV PUSH (11:50)
[2024-11-28] MEDS: fentaNYL CITRATE INJ (*CRX) 100 MCG/2 ML VIAL IV PUSH (11:50)
[2024-11-28] MEDS: LOSARTAN POTASSIUM 25 MG TABLET PO (12:11)
[2024-11-28] MEDS: CALCIUM CARBONATE (TUMS) 500 MG (200 MG ELEMENTAL) 400 MG PO (15:52)
[2024-11-28] MEDS: SOTALOL HCL 80 MG TABLET PO (20:25)
[2024-11-28] MEDS: ZOLPIDEM TARTRATE (*CRX) 5 MG TABLET 10 MG PO (20:25)
[2024-11-29] VITALS (11 sets, daily range): BP systolic 143–172; BP diastolic 89–113; PULSE 74–94; RESP 14–22; TEMP 36.7; O2SAT 92–95
[2024-11-29 03:21] LABS: Hematocrit 50.8 % (37.0-47.0); Hemoglobin 16.3 g/dL (12.0-15.0); Immature Granulocyte Percent A 0.4 % (0-0.5); Lymphocytes Absolute Auto 2.23 K/mm3 (0.9-3.2); Mean Corpuscular HGB Conc 32.1 g/dl (32-36); Mean Corpuscular Hemoglobin 29.6 pg (26-34); Mean Corpuscular Volume 92.2 fl (80-100); Nucleated Red Blood Cells Absolute Auto 0.000 K/mm3 (0.0-0.012); Nucleated Red Blood Cells Perc 0.0 % (0.0-0.2); Platelet Count Result 262 k/mm3 (150-375); Red Blood Count 5.51 M/mm3 (4.2-5.4); White Blood Count 10.3 K/mm3 (4.5-10.0)
[2024-11-29 03:37] LABS: Anion Gap 7 mmol/L (4-12); Blood Urea Nitrogen 27 mg/dL (7-17); Calcium 9.5 mg/dL (8.4-10.2); Carbon Dioxide 25 mmol/L (22-30); Chloride 102 mmol/L (98-107); Estimated CRCL calculation 75 ml/min; Estimated Glomerular Filt Rate > 60; Glucose 105 mg/dL (65-110); Potassium 4.0 mmol/L (3.4-5.0); Sodium 134 mmol/L (137-145)
[2024-11-29] MEDS: SOTALOL HCL 80 MG TABLET PO (08:33)
[2024-11-29] MEDS: BENZONATATE 100 MG CAPSULE PO (08:33)
[2024-11-29] MEDS: guaiFENesin 12 HR 600 MG TABCR PO (08:33)
[2024-11-29] MEDS: APIXABAN 5 MG TABLET PO (08:34)
[2024-11-29] MEDS: ESCITALOPRAM OXALATE 10 MG TABLET PO (08:34)
[2024-11-29] MEDS: LOSARTAN POTASSIUM 50 MG TABLET PO ×2 (08:34→12:32)
--- NOTE | 2024-11-29 14:24 | PM.DS ---
DS: Admitting Diagnosis Discharge Date 11/29/24 Admitting Diagnosis - AFib with RVR - cough - accelerated hypertension DS: Discharge Diagnosis Discharge Diagnosis (1) Atrial fibrillation with RVR: Code(s): I48.91 - Unspecified atrial fibrillation Status: Acute (2) Hypertension: Qualifiers: Hypertension type: primary hypertension Qualified Code(s): I10 - Essential (primary) hypertension Code(s): I10 - Essential (primary) hypertension Status: Chronic (3) Chronic cough: Code(s): R05.3 - Chronic cough Status: Chronic (4) Insomnia: Qualifiers: Insomnia type: unspecified Qualified Code(s): G47.00 - Insomnia, unspecified Code(s): G47.00 - Insomnia, unspecified Status: Chronic (5) Depression: Qualifiers: Depression Type: unspecified Qualified Code(s): F32.A - Depression, unspecified Code(s): F32.A - Depression, unspecified Status: Chronic (6) SHENA (acute kidney injury): Code(s): N17.9 - Acute kidney failure, unspecified Status: Acute DS: Summary Hospital Course Reason for hospitalization: - AFib with RVR - cough - accelerated hypertension Hospital Course: Patient is a 59-year-old female with past medical history of atrial fibrillation on Eliquis, hypertension, migraines, dyslipidemia, insomnia presented to the ED on 11/27/2024 with complaints of shortness of breath, cough, and feeling as if her heart rate is elevated. Initial vital signs BP 119/94, heart rate 148, respirations 18, O2 90% on room air, afebrile. EKG reveals AFib with RVR with rate of 185. CBC significant for appearing hemoconcentrated white count 12.1, RBC 6.58, hemoglobin 19.4 Chemistry significant for K 3.3, CO2 20, anion gap 13, BUN 20, creatinine 1.14, BNP 914, total protein 8.5 Patient admitted for further evaluation and management of AFib with RVR. Initially received metoprolol and Cardizem IV push and then started on Cardizem drip with minimal improvement. S/p cardioversion 11/28 with conversion to sinus rhythm. Cardiology followed and recommended to continue home sotalol and Eliquis. Cardiology placed EP referral on discharge to discuss ablation as an outpatient. While admitted, patient had elevated blood pressures. She reports history of elevated BP and has previously been prescribed multiple antihypertensives which she states she has had he side effects with. While admitted, Cardiology stopped lisinopril and started losartan which was titrated up to 100mg due to patient's chronic cough. Patient was instructed to monitor her blood pressures and keep a log at home. Also instructed to maintain a low sodium diet. She will follow-up with cardiology and her primary care provider regarding her uncontrolled hypertension. While admitted, patient also had a mild SHENA with creatinine 1.14 on admission with a baseline creatinine of 0.89. She received IV fluids with improvement in her creatinine. Patient was discharged home in stable condition. Time Spent with Patient Time attestation: Total time spent providing and/or coordinating discharge services: Time spent: Greater than 30 minutes Exam Narrative: General: NAD Eyes: EOMI ENT: neck supple Cardiovascular: regular rate and rhythm Respiratory: Clear to auscultation, respirations even and unlabored on RA Gastrointestinal: Soft, non tender Genitourinary: no suprapubic tenderness Musculoskeletal: No edema Skin: warm, dry Neuro: Alert. Psych: Mood appropriate DS: Data Data Completed and Pending Labs on day of discharge: Labs from last 24 hours 11/29/24 02:46 WBC 10.3 H RBC 5.51 H Hgb 16.3 H Hct 50.8 H MCV 92.2 MCH 29.6 MCHC 32.1 RDW 14.6 H Plt Count 262 MPV 11.1 H Immature Gran % (Auto) 0.4 Neut % (Auto) 60.7 Lymph % (Auto) 21.7 [place] % (Auto) 13.8 H Eos % (Auto) 2.3 Baso % (Auto) 1.1 Lymph # (Auto) 2.23 [place] # (Auto) 1.4 H Eos # (Auto) 0.2 Baso # (Auto) 0.1 Abs Immat Gran (auto) 0.04 H Absolute Neuts (auto) 6.2 Absolute Nucleated RBC 0.000 Nucleated RBC % 0.0 Sodium 134 L Potassium 4.0 Chloride 102 Carbon Dioxide 25 Anion Gap 7 BUN 27 H Creatinine 0.82 Estim Creat Clear Calc 75 Estimated GFR > 60 Glucose 105 Calcium 9.5 Discharge Plan Discharge Attending physician on discharge: Delia Ashley Consulting providers: Sudha Gibbs; Lisa Little Discharging Clinician: Sudha Gibbs Anticipated Discharge Date/Time: 11/29/24 14:17 Patient Disposition: Home Activity: as tolerated Diet: heart healthy Discharge Instructions: Follow-up with your primary care provider in one week. Checking blood pressure 1 to 2 times daily and keep a log of her blood pressures to bring to her follow-up appointments. Watch your salt intake and work on weight loss which will help with your blood pressure. Cardiology will be sending a referral to electrophysiology to discuss an ablation for Afib. They should call you, but please call the director global intelligence office with any questions. Please note your lisinopril has been stopped and you have been started on losartan for blood pressure management. Return to the emergency department if you develop chest pain, shortness of breath, persistent fever >100.4, confusion, loss of consciousness. Patient Instructions: Antibiotic Form, Chronic Hypertension (DC) Patient Language: [place] Citizen Stand Alone Forms: General Discharge Information Follow-up/Referrals: Ran Gordillo MD [Physician, Cardiology] Sourav Montelongo MD [Primary Care Provider, Family Practice] - Call for Appointment Referral Note: 5-7 days Discharge Medications: New losartan [Cozaar] 50 mg Tablet 100 mg PO DAILY 30 Days Qty: 60 0RF benzonatate 100 mg Capsule 100 mg PO TID PRN (Reason: Cough) Qty: 20 0RF Continued Eliquis 5 mg Tablet 5 mg PO Q12HR Qty: 60 2RF sotalol 80 mg tablet 80 mg PO BID zolpidem 10 mg tablet 10 mg PO QHS Qty: 90 1RF Zepbound 2.5 mg/0.5 mL pen injector 2.5 mg subcut WEEKLY Qty: 2 0RF escitalopram oxalate [Lexapro] 10 mg tablet 10 mg PO DAILY Qty: 90 0RF Rx Instructions: DUE FOR APPOINTMENT IN JANUARY Discontinued lisinopril 10 mg tablet 10 mg PO DAILY Date of admission: 11/27/24 13:29 Primary Care Provider: Sourav Montelongo Admitting Provider: Byron Barrientos Attending physician on admission: Byron Barrientos Condition: Stable
== END 2024-11-29 15:04 | disposition home or self-care (01) | DRG 309 ==
LOC: ANHED 12:33 → ANHIMU 14:19
PROVIDERS: Internal Medicine Cardiovascular Disease; Nurse Practitioner Adult Health; Nurse Practitioner Family; Student in an Organized Health Care Education/Training Program; Admitting Provider Family Medicine; Emergency Provider Student in an Organized Health Care Education/Training Program; PCP Family Medicine; Visit Provider Physician Assistant
PROC: 5A2204Z Restoration of Cardiac Rhythm, Single (ICD-10-PCS; principal; 2024-11-28 10:30)
DX: I48.20 Chronic atrial fibrillation, unspecified (principal); N17.9 Acute kidney failure, unspecified; E78.5 Hyperlipidemia, unspecified; E66.9 Obesity, unspecified; F32.A Depression, unspecified; G43.909 Migraine, unspecified, not intractable, without status migrainosus; G89.29 Other chronic pain; G47.00 Insomnia, unspecified; I10 Essential (primary) hypertension; M54.9 Dorsalgia, unspecified; R05.3 Chronic cough; Z79.01 Long term (current) use of anticoagulants; Z87.891 Personal history of nicotine dependence
CPT/HCPCS: 36415; 71045; 80048; 80053; 80069; 83735; 83880; 84443; 84484; 85025; 85027; 85610; 85730; 92960; 93005; 96374; 99285; A9270; C8929; J0616; J1163; J1938; J2250; J3010; J7040; J7120; Q9957